=== PATIENT | female | born 1965 | race Caucasian/White ===

== ENCOUNTER 2016-06-08 07:21 | Emergency (ER) | payer BC ==
[2016-06-08 07:43] VITALS: BP 110/70
--- NOTE | 2016-06-08 07:51 | UC ---
Throat Pain/Nasal Alonso HPI - HPI Summary HPI Summary: sinus pressure, and green drainage x 2weeks, awoke with headache this am so came for eval. Also exposed to strep by her grandchildren. Had sinuplasty 2010 -Dr. Hays and has had 4 nasal fractures. Hot and cold chills but no def fever. - History of Current Complaint Chief Complaint: UCRespiratory Stated Complaint: UPPER RESPIRATORY Time Seen by Provider: 06/08/16 07:43 Hx Obtained From: Patient Hx Last Menstrual Period: n/a Onset/Duration: Gradual Onset, Lasting Weeks - 2, Still Present Severity: Moderate Pain Intensity: 8 Pain Scale Used: 0-10 Numeric Cough: Sputum Appears - green Associated Signs & Symptoms: Positive: Wheezing, Sinus Discomfort, Nasal Discharge, Other - chills. Negative: Fever Related History: Prior ENT Surgery - sinuplasty - Epiglottits Risk Factors Epiglottis Risk Factors: Negative - Allergies/Home Medications Allergies/Adverse Reactions: Allergies Allergy/AdvReac Type Severity Reaction Status Date / Time Sulfa Drugs Allergy Severe Rash And Verified 06/08/16 07:33 Itching Tomato Allergy Hives Verified 06/08/16 07:33 Home Medications: Home Medications Fluticasone NASAL SPRAY 50MCG* [Flonase NASAL SPRAY 50MCG*] 2 inh NASAL BID [History Confirmed 06/08/16] Ibuprofen TAB* [Advil TAB*] 400 mg PO Q6H PRN 06/08/16 [History Confirmed ] PMH/Surg Hx/FS Hx/Imm Hx Endocrine History Of: Reports: Thyroid Disease - s/p Thyroidectomy Denies: Diabetes Cardiovascular History Of: Denies: Cardiac Disorders, Hypertension Respiratory History Of: Denies: COPD, Asthma GI/ History Of: Denies: Ulcer Psychological History Of: Reports: Anxiety Cancer History Of: Denies: Breast Cancer - Surgical History Surgical History: Yes Surgery Procedure, Year, and Place: Partial Hysterectomy 2004/thyroidectomy, bladder sling, nose, csection - Family History Known Family History: Positive: Other - Crohn's, thyroid cancer, lung cancer, ovarian cancer - Social History 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 Lives: With Family Alcohol Use: Occasionally Substance Use Type: None Smoking Status (MU): Former Smoker Type: Cigarettes Amount Used/How Often: 1/2 PPD Length of Time of Smoking/Using Tobacco: 19 Years Have You Smoked in the Last Year: No When Did the Patient Quit Smoking/Using Tobacco: 2003 Household Exposure Type: Cigarettes - Immunization History Most Recent Influenza Vaccination: NO Review of Systems Constitutional: Chills ENT: Nasal Discharge, Other - sinus pressure Respiratory: Cough Cardiovascular: Negative Neurological: Headache Psychological: Negative All Other Systems Reviewed And Are Negative: Yes Physical Exam Triage Information Reviewed: Yes Appearance: No Pain Distress, Well-Nourished, Ill-Appearing Vital Signs: Initial Vital Signs Temp 98 F 06/08/16 07:37 Pulse 79 06/08/16 07:37 Resp 18 06/08/16 07:37 BP 110/70 06/08/16 07:37 Pulse Ox 99 06/08/16 07:37 Vital Signs Reviewed: Yes Eyes: Positive: Conjunctiva Clear ENT: Positive: Pharyngeal erythema, TMs normal Neck: Positive: Supple, Nontender, No Lymphadenopathy Respiratory: Positive: Lungs clear, Normal breath sounds, No respiratory distress Cardiovascular: Positive: RRR, No Murmur, Pulses Normal, Brisk Capillary Refill Musculoskeletal: Positive: Strength Intact, ROM Intact Neurological: Positive: Alert, Muscle Tone Normal Psychological Exam: Normal Skin Exam: Normal Throat Pain/Nasal Course/Dx - Course Course Of Treatment: rapid A neg - Differential Dx/Diagnosis Differential Diagnosis/HQI/PQRI: Pharyngitis, Sinusitis, URI Provider Diagnoses: acute sinusitis Discharge - Discharge Plan Condition: Stable Disposition: HOME Prescriptions: Amoxicillin/Clavulanate TAB* [Augmentin TAB 875*] 875 mg PO BID #20 tab Patient Education Materials: Sinusitis (ED) Referrals: Fern Henley MD [Medical Doctor] -
== END 2016-06-08 08:17 | disposition home or self-care (01) ==
LOC: UCCORT 07:21
DX: J01.90 Acute sinusitis, unspecified (principal); Z88.2 Allergy status to sulfonamides; Z87.891 Personal history of nicotine dependence
CPT/HCPCS: 87651; 99211; G0463

== ENCOUNTER 2016-06-28 09:54 | Emergency (ER) | payer BC ==
[2016-06-28 10:54] VITALS: BP 106/62
--- NOTE | 2016-06-28 11:20 | UC ---
Throat Pain/Nasal Alonso HPI - HPI Summary HPI Summary: SINUS PAIN AND PRESSURE X 10 DAYS + NASAL CONGESTION PND, NO FEVER, NO CHILLS - History of Current Complaint Chief Complaint: UCGeneralIllness Stated Complaint: SINUS Time Seen by Provider: 06/28/16 11:07 Hx Obtained From: Patient Hx Last Menstrual Period: n/a Onset/Duration: Gradual Onset, Lasting Days - 10, Still Present Severity: Moderate Cough: Nonproductive Associated Signs & Symptoms: Positive: Sinus Discomfort, Nasal Discharge. Negative: Fever, Rash - Allergies/Home Medications Allergies/Adverse Reactions: Allergies Allergy/AdvReac Type Severity Reaction Status Date / Time Sulfa Drugs Allergy Severe Rash And Verified 06/28/16 10:50 Itching Tomato Allergy Hives Verified 06/28/16 10:50 PMH/Surg Hx/FS Hx/Imm Hx Endocrine History Of: Reports: Thyroid Disease - s/p Thyroidectomy Denies: Diabetes Cardiovascular History Of: Denies: Cardiac Disorders, Hypertension Respiratory History Of: Denies: COPD, Asthma GI/ History Of: Denies: Ulcer Psychological History Of: Reports: Anxiety Cancer History Of: Denies: Breast Cancer - Surgical History Surgical History: Yes Surgery Procedure, Year, and Place: Partial Hysterectomy 2004/thyroidectomy, bladder sling, nose, csection - Family History Known Family History: Positive: Hypertension, Other - Crohn's, thyroid cancer, lung cancer, ovarian cancer - Social History Alcohol Use: Occasionally Substance Use Type: None Smoking Status (MU): Former Smoker Type: Cigarettes Amount Used/How Often: 1/2 PPD Length of Time of Smoking/Using Tobacco: 19 Years Have You Smoked in the Last Year: No When Did the Patient Quit Smoking/Using Tobacco: 2004 Household Exposure Type: Cigarettes - Immunization History Most Recent Influenza Vaccination: Not the Season Review of Systems Constitutional: Negative Skin: Negative Eyes: Negative ENT: Nasal Discharge Respiratory: Cough Cardiovascular: Negative Genitourinary: Dysuria All Other Systems Reviewed And Are Negative: Yes Physical Exam Triage Information Reviewed: Yes Appearance: Well-Appearing, No Pain Distress, Well-Nourished Vital Signs: Initial Vital Signs Temp 99 F 06/28/16 10:46 Pulse 97 06/28/16 10:46 Resp 16 06/28/16 10:46 BP 106/62 06/28/16 10:46 Pulse Ox 100 04/15/17 10:46 Vital Signs Reviewed: Yes Eyes: Positive: Conjunctiva Clear ENT: Positive: Normal ENT inspection, Hearing grossly normal, Pharynx normal, Nasal congestion, Nasal drainage, TMs normal Neck: Positive: Supple, Nontender, No Lymphadenopathy Respiratory: Positive: Chest non-tender, Lungs clear, Normal breath sounds, No respiratory distress Cardiovascular: Positive: RRR, No Murmur, Pulses Normal Abdominal Exam: Normal Abdomen Description: Positive: Nontender, No Organomegaly, Soft, Distended, Guarding. Negative: CVA Tenderness (R), CVA Tenderness (L) Bowel Sounds: Positive: Present Throat Pain/Nasal Course/Dx - Differential Dx/Diagnosis Provider Diagnoses: SINUSITIS Discharge - Discharge Plan Condition: Stable Disposition: HOME Prescriptions: Amoxicillin/Clavulanate TAB* [Augmentin TAB 875*] 875 mg PO BID #20 tab Patient Education Materials: Sinusitis (ED) Referrals: Jennifer Noble PA [Primary Care Provider] - If Needed
== END 2016-06-28 11:29 | disposition home or self-care (01) ==
LOC: UCCORT 09:54
DX: J32.9 Chronic sinusitis, unspecified (principal); F41.8 Other specified anxiety disorders; E89.0 Postprocedural hypothyroidism; Z90.711 Acquired absence of uterus with remaining cervical stump; Z88.2 Allergy status to sulfonamides; Z87.891 Personal history of nicotine dependence
CPT/HCPCS: 81003; 99212; G0463

== ENCOUNTER 2016-08-21 19:09 | Emergency (ER) | payer BC ==
[2016-08-21 20:18] VITALS: BP 104/57
--- NOTE | 2016-08-21 20:29 | UC ---
Throat Pain/Nasal Alosno HPI - HPI Summary HPI Summary: 50 yo F with sinus pressure and teeth aching x 2 weeks. A little dizzy. Hx sinus infections, s/p sinuplasty with Dr. Hays in 2010. - History of Current Complaint Chief Complaint: UCGeneralIllness Stated Complaint: SINUS COMPLAINT Time Seen by Provider: 08/21/16 20:20 Hx Obtained From: Patient Hx Last Menstrual Period: n/a Onset/Duration: Gradual Onset, Lasting Days, Still Present Severity: Moderate Pain Intensity: 7 Pain Scale Used: 0-10 Numeric Cough: None Associated Signs & Symptoms: Positive: Sinus Discomfort, Nasal Discharge Related History: Prior ENT Surgery - Allergies/Home Medications Allergies/Adverse Reactions: Allergies Allergy/AdvReac Type Severity Reaction Status Date / Time Sulfa Drugs Allergy Severe Rash And Verified 08/21/16 20:11 Itching Tomato Allergy Hives Verified 08/21/16 20:11 Home Medications: Home Medications Pseudoephedrine TAB* [Sudafed TAB*] 30 mg PO Q6H PRN 08/21/16 [History Confirmed 08/21/16] PMH/Surg Hx/FS Hx/Imm Hx Previously Healthy: Yes - Surgical History Surgical History: Yes Surgery Procedure, Year, and Place: Partial Hysterectomy 2004/thyroidectomy, bladder sling, rhinoplasty, csection - Family History Known Family History: Positive: Hypertension, Other - Crohn's, thyroid cancer, lung cancer, ovarian cancer - Social History Lives: With Family Alcohol Use: Occasionally Substance Use Type: None Smoking Status (MU): Former Smoker Type: Cigarettes Amount Used/How Often: 1/2 PPD Length of Time of Smoking/Using Tobacco: 19 Years Have You Smoked in the Last Year: No When Did the Patient Quit Smoking/Using Tobacco: 2003 Household Exposure Type: Cigarettes - Immunization History Most Recent Influenza Vaccination: Not the 2016/2016 Season Review of Systems Constitutional: Negative Skin: Negative Eyes: Negative ENT: Nasal Discharge, Other - sinus discomfort, teeth pain Respiratory: Negative Cardiovascular: Negative Gastrointestinal: Negative Genitourinary: Negative Motor: Negative Neurovascular: Negative Musculoskeletal: Negative Neurological: Negative Psychological: Negative All Other Systems Reviewed And Are Negative: Yes Physical Exam Triage Information Reviewed: Yes Appearance: Well-Nourished, Ill-Appearing, Pain Distress Vital Signs: Initial Vital Signs Temp 98.8 F 08/21/16 20:13 Pulse 88 08/21/16 20:13 Resp 16 08/21/16 20:13 BP 104/57 08/21/16 20:13 Pulse Ox 99 08/21/16 20:13 Vital Signs Reviewed: Yes Eyes: Positive: Conjunctiva Clear ENT: Positive: Hearing grossly normal, Pharyngeal erythema, TMs normal, Other: - sinus tenderness left frontal and left maxillary Dental: Negative: Percussion Tenderness @ - of right sided upper teeth, Abscess @, Cellulitis @ Neck: Positive: Supple, Nontender, No Lymphadenopathy Respiratory: Positive: Lungs clear, Normal breath sounds, No respiratory distress, No accessory muscle use Cardiovascular: Positive: RRR, No Murmur, Pulses Normal, Brisk Capillary Refill Musculoskeletal: Positive: Strength Intact, ROM Intact Neurological: Positive: Alert, Muscle Tone Normal Psychological Exam: Normal Skin Exam: Normal Throat Pain/Nasal Course/Dx - Differential Dx/Diagnosis Differential Diagnosis/HQI/PQRI: Laryngitis, Pharyngitis, Sinusitis, URI Provider Diagnoses: sinusitis Discharge - Discharge Plan Condition: Stable Disposition: HOME Prescriptions: Amoxicillin/Clavulanate TAB* [Augmentin TAB 875*] 875 mg PO BID #20 tab Patient Education Materials: Sinusitis (ED) Referrals: Jennifer Noble PA [Primary Care Provider] -
== END 2016-08-21 20:38 | disposition home or self-care (01) ==
LOC: UCCORT 19:09
DX: J32.9 Chronic sinusitis, unspecified (principal); Z87.891 Personal history of nicotine dependence
CPT/HCPCS: 99211; G0463

== ENCOUNTER 2017-01-01 16:44 | Emergency (ER) | payer BC ==
[2017-01-01] MEDS ORDERED: Fluorescein Sodium TOPICAL* 1 MG TEST OPHTHALMIC ONE (18:29)
[2017-01-01] MEDS ORDERED: Tetracaine 0.5% OPTH.SOL 4 ML* 1 DROP BTL LEFT EYE ONE (18:30)
[2017-01-01] MEDS ORDERED: Eye Irrigation Solution 30 ML BOTTLE LEFT EYE ONE (18:31)
[2017-01-01 18:41] VITALS: BP 113/76
--- NOTE | 2017-01-01 19:01 | UC ---
Eye Complaint HPI - HPI Summary HPI Summary: PATIENT OF DR PALOMINO'S SERVICE, SINUS SURGERY AND LEFT EAR TUBE PLACED IN OCTOBER. THREE DAYS OF LEFT SIDED SINUS PRESSURE CONGESTION. LEFT EYE REDNESS AND DISCHARGE SINCE THIS MORNING. NO FEVER. NO CHANGES IN VISION. NO PAIN WITH EYE MOVEMENT. - History of Current Complaint Chief Complaint: UCEye Stated Complaint: FOREIGN BODY EYE Time Seen by Provider: 01/01/17 18:13 Hx Obtained From: Patient, Family/Housekeeping Cleaner Hx Last Menstrual Period: n/a Onset/Duration: Sudden Onset, Lasting Days, Worse Since - TODAY Timing: Constant Severity Initially: Mild Severity Currently: Moderate Location of Injury: Conjunctiva Character: Dull Aggravating Factor(s): Nothing Alleviating Factor(s): Nothing Associated Signs And Symptoms: Positive: Drainage (Clear), Drainage (Purulent). Negative: Photophobia, Vision Impairment Bilateral, Vision Impairment Right, Vision Impairment Left, Fever, Swelling - Risk Factors Penetrating Injury Risk Factor: Negative Globe Rupture Risk Factors: Negative Acute Glaucoma Risk Factors: Eye Inflammation Optic Artery Occlusion Risk Factors: Negative - Allergies/Home Medications Allergies/Adverse Reactions: Allergies Allergy/AdvReac Type Severity Reaction Status Date / Time Sulfa Drugs Allergy Severe Rash And Verified 01/01/17 18:31 Itching Tomato Allergy Hives Verified 01/01/17 18:31 Home Medications: Home Medications Phentermine HCl 37.5 mg PO DAILY 01/01/17 [History Confirmed 01/01/17] PMH/Surg Hx/FS Hx/Imm Hx Previously Healthy: Yes - Surgical History Surgical History: Yes Surgery Procedure, Year, and Place: Partial Hysterectomy 2004/thyroidectomy, bladder sling, rhinoplasty, csection - Family History Known Family History: Positive: Hypertension, Other - Crohn's, thyroid cancer, lung cancer, ovarian cancer - Social History Occupation: Employed Full-time Lives: With Family Alcohol Use: Occasionally Substance Use Type: None Smoking Status (MU): Former Smoker Type: Cigarettes Amount Used/How Often: 1/2 PPD Length of Time of Smoking/Using Tobacco: 19 Years Have You Smoked in the Last Year: No When Did the Patient Quit Smoking/Using Tobacco: 2003 Household Exposure Type: Cigarettes - Immunization History Most Recent Influenza Vaccination: Not the 2016/2016 Season Review of Systems Constitutional: Negative Skin: Negative Eyes: Drainage, Eye Redness - LEFT ENT: Negative Respiratory: Negative Cardiovascular: Negative Gastrointestinal: Negative Genitourinary: Negative Motor: Negative Neurovascular: Negative Musculoskeletal: Negative Neurological: Negative Psychological: Negative Is Patient Immunocompromised?: No All Other Systems Reviewed And Are Negative: Yes Physical Exam Triage Information Reviewed: Yes Appearance: Well-Appearing, No Pain Distress, Well-Nourished Vital Signs: Initial Vital Signs Temp 98 F 01/01/17 18:34 Pulse 85 01/01/17 18:34 Resp 16 01/01/17 18:34 BP 113/76 01/01/17 18:34 Pulse Ox 100 01/01/17 18:34 Vital Signs Reviewed: Yes Eyes: Positive: Conjunctiva Inflamed, Discharge ENT: Positive: Pharynx normal, Nasal congestion, Nasal drainage, TM bulging, TM dull, Other: - FRONTAL AND LEFT MAXILLARY SINUS TENDERNESS TO PALPATION; EAR TUBE IN LEFT OM Dental Exam: Normal Neck exam: Normal Neck: Positive: Supple, Nontender Respiratory Exam: Normal Respiratory: Positive: Chest non-tender, Lungs clear, Normal breath sounds, No respiratory distress, No accessory muscle use Cardiovascular Exam: Normal Cardiovascular: Positive: RRR, No Murmur, Pulses Normal, Brisk Capillary Refill Musculoskeletal Exam: Normal Musculoskeletal: Positive: Strength Intact, ROM Intact Neurological Exam: Normal Psychological Exam: Normal Psychological: Positive: Normal Response To Family Skin Exam: Normal Eye Complaint Course/Dx - Differential Dx/Diagnosis Differential Diagnosis/HQI/PQRI: Conjunctivitis, Corneal Abrasion, Other - SINUSITIS Provider Diagnoses: LEFT CONJUNCTIVITIS; SINUSITIS - Physician Notification/Consults Instructed by Provider To: Have Pt Call For Appt. Discharge - Discharge Plan Condition: Stable Disposition: HOME Prescriptions: Amoxicillin/Clavulanate TAB* [Augmentin TAB 875*] 875 mg PO BID #20 tab Tobramycin 0.3% OPHTH.KAREN* 4 drop LEFT EYE Q4H #1 btl Patient Education Materials: Sinusitis (ED), Conjunctivitis (ED) Referrals: Jennifer Noble PA [Primary Care Provider] - Ga Palomino MD [Medical Doctor] -
== END 2017-01-01 19:11 | disposition home or self-care (01) ==
LOC: UCCORT 16:44
DX: H10.32 Unspecified acute conjunctivitis, left eye (principal); J32.9 Chronic sinusitis, unspecified; X58.XXXA Exposure to other specified factors, initial encounter; Z88.2 Allergy status to sulfonamides; Z87.891 Personal history of nicotine dependence
CPT/HCPCS: 99212; G0463

== ENCOUNTER 2017-06-01 07:28 | Emergency (ER) | payer BC ==
[2017-06-01 07:52] VITALS: BP 118/78
--- NOTE | 2017-06-01 08:01 | ED ---
GI/ HPI - HPI Summary HPI Summary: 51 yr old female with the complaint of Post nasal drip, sore throat, sinus pressure, onset a month ago. She also complains of bladder spasms and some flank pain. Denies fever, chills. Denies NVD. - History of Current Complaint Chief Complaint: UCRespiratory Time Seen by Provider: 06/01/17 07:53 Stated Complaint: URINARY/SINUS Hx Last Menstrual Period: n/a Pain Intensity: 5 - Allergy/Home Medications Allergies/Adverse Reactions: Allergies Allergy/AdvReac Type Severity Reaction Status Date / Time Sulfa (Sulfonamide Allergy Rash And Verified 06/01/17 07:38 Antibiotics) Itching tomato Allergy Hives Verified 06/01/17 07:38 Home Medications: Home Medications Cholecalciferol TAB* [Vitamin D TAB*] 1,000 unit PO DAILY 06/01/17 [History Confirmed 06/01/17] Topiramate TAB(*) [Topamax 25 MG tab] 50 mg PO QAM 06/01/17 [History Confirmed 06/01/17] PMH/Surg Hx/FS Hx/Imm Hx Endocrine/Hematology History: Reports: Hx Thyroid Disease - s/p Thyroidectomy Denies: Hx Diabetes Cardiovascular History: Denies: Hx Hypertension Respiratory History: Denies: Hx Asthma, Hx Chronic Obstructive Pulmonary Disease (COPD) GI History: Denies: Hx Ulcer Psychiatric History: Reports: Hx Anxiety - Cancer History Hx Chemotherapy: No Hx Radiation Therapy: No - Surgical History Surgery Procedure, Year, and Place: Partial Hysterectomy 2004/thyroidectomy, bladder sling, rhinoplasty, csection Infectious Disease History: No Infectious Disease History: Reports: Hx Shingles Denies: Hx Clostridium Difficile, Hx Hepatitis, Hx Human Immunodeficiency Virus (HIV), Hx of Known/Suspected MRSA, Hx Tuberculosis, Hx Known/Suspected VRE , Hx Known/Suspected VRSA, History Other Infectious Disease, Traveled Outside the [place] in Last 30 Days - Family History Known Family History: Positive: Hypertension, Other - Crohn's, thyroid cancer, lung cancer, ovarian cancer - Social History Alcohol Use: Occasionally Substance Use Type: Reports: None Smoking Status (MU): Former Smoker Type: Cigarettes Amount Used/How Often: 1/2 PPD Length of Time of Smoking/Using Tobacco: 19 Years Have You Smoked in the Last Year: No Review of Systems Constitutional: Negative Positive: Sore Throat, Nasal Discharge Positive: Cough All Other Systems Reviewed And Are Negative: Yes Physical Exam Triage Information Reviewed: Yes Vital Signs On Initial Exam: Initial Vitals Temp Pulse Resp BP Pulse Ox 99.5 F 94 18 118/78 100 06/01/17 07:46 06/01/17 07:46 06/01/17 07:46 06/01/17 07:46 06/01/17 07:46 Vital Signs Reviewed: Yes Appearance: Positive: Well-Appearing, No Pain Distress Skin: Positive: Warm, Skin Color Reflects Adequate Perfusion Head/Face: Positive: Normal Head/Face Inspection Eyes: Positive: EOMI ENT: Positive: Pharyngeal erythema, Nasal congestion, Nasal drainage, TMs normal , Sinus tenderness Neck: Positive: Nontender Respiratory/Lung Sounds: Positive: Clear to Auscultation, Breath Sounds Present Cardiovascular: Positive: RRR. Negative: Murmur Abdomen Description: Positive: Nontender Musculoskeletal: Positive: Strength/ROM Intact Neurological: Positive: Sensory/Motor Intact, Alert, Oriented to Person Place, Time, CN Intact II-III Psychiatric: Positive: Normal Diagnostics - Vital Signs Vital Signs Temp Pulse Resp BP Pulse Ox 06/01/17 07:46 99.5 F 94 18 118/78 100 - Laboratory Lab Statement: Any lab studies that have been ordered have been reviewed, and results considered in the medical decision making process. GIGU Course/Dx - Course Course Of Treatment: UTI and sinus infection. - Diagnoses Provider Diagnoses: UTI (urinary tract infection), Sinus infection Discharge - Discharge Plan Condition: Good Disposition: HOME Prescriptions: Amoxicillin/Clavulanate TAB* [Augmentin TAB 875*] 875 mg PO BID #20 tab Patient Education Materials: Urinary Tract Infection in Women (ED), Sinusitis ( ED) Referrals: Jennifer Noble PA [Primary Care Provider] - 4 Days
== END 2017-06-01 08:12 | disposition home or self-care (01) ==
LOC: UCCORT 07:28
DX: N39.0 Urinary tract infection, site not specified (principal); J32.9 Chronic sinusitis, unspecified; Z88.2 Allergy status to sulfonamides; Z87.891 Personal history of nicotine dependence; Z91.018 Allergy to other foods
CPT/HCPCS: 81003; 87086; 99212; G0463

== ENCOUNTER 2017-09-04 18:18 | Emergency (ER) | payer BC ==
[2017-09-04 20:34] VITALS: BP 103/77
--- NOTE | 2017-09-04 20:55 | UC ---
Throat Pain/Nasal Alonso HPI - HPI Summary HPI Summary: day 6 of nasal drainage, scratchy throat, congestion,cough, no fevers - History of Current Complaint Chief Complaint: UCGeneralIllness Stated Complaint: SORE THROAT Time Seen by Provider: 09/04/17 20:45 Hx Obtained From: Patient Hx From Patient Unobtainable Due To: Dementia Hx Last Menstrual Period: n/a ?: No Onset/Duration: Sudden Onset Pain Intensity: 5 Pain Scale Used: 0-10 Numeric Cough: Nonproductive Associated Signs & Symptoms: Positive: Nasal Discharge Related History: Seasonal Allergies - Allergies/Home Medications Allergies/Adverse Reactions: Allergies Allergy/AdvReac Type Severity Reaction Status Date / Time Sulfa (Sulfonamide Allergy Rash And Verified 09/04/17 20:25 Antibiotics) Itching tomato Allergy Hives Verified 09/04/17 20:25 Home Medications: Home Medications Levocetirizine Dihydrochloride [Xyzal] 5 mg PO DAILY PRN 09/04/17 [History Confirmed 09/04/17] Omeprazole 40 mg PO BEDTIME 09/04/17 [History Confirmed 09/04/17] PMH/Surg Hx/FS Hx/Imm Hx Previously Healthy: No Endocrine History: Hypothyroidism GI/ History: Gastroesophageal Reflux Psychological History: Depression - Surgical History Surgical History: Yes Surgery Procedure, Year, and Place: Partial Hysterectomy 2004/thyroidectomy, bladder sling, rhinoplasty, csection - Family History Known Family History: Positive: Hypertension, Other - Crohn's, thyroid cancer, lung cancer, ovarian cancer - Social History Occupation: Employed Full-time Lives: With Family Alcohol Use: Occasionally Substance Use Type: None Smoking Status (MU): Former Smoker Type: Cigarettes Amount Used/How Often: 1/2 PPD Length of Time of Smoking/Using Tobacco: 19 Years Have You Smoked in the Last Year: No When Did the Patient Quit Smoking/Using Tobacco: 2004 Household Exposure Type: Cigarettes - Immunization History Most Recent Influenza Vaccination: Not the 2016/2016 Season Review of Systems Constitutional: Negative Skin: Negative Eyes: Negative ENT: Sore Throat, Nasal Discharge, Sinus Congestion Respiratory: Cough Cardiovascular: Negative Gastrointestinal: Negative Genitourinary: Negative Motor: Negative Neurovascular: Negative Musculoskeletal: Negative Neurological: Negative Psychological: Negative Is Patient Immunocompromised?: No All Other Systems Reviewed And Are Negative: Yes Physical Exam Triage Information Reviewed: Yes Appearance: Well-Appearing, No Pain Distress, Well-Nourished Vital Signs: Initial Vital Signs Temp 99.1 F 09/04/17 20:25 Pulse 87 09/04/17 20:25 Resp 20 09/04/17 20:25 BP 103/77 09/04/17 20:25 Pulse Ox 100 09/04/17 20:25 Vital Signs Reviewed: Yes Eye Exam: Normal Eyes: Positive: Conjunctiva Clear ENT Exam: Normal ENT: Positive: Normal ENT inspection, Hearing grossly normal, Pharynx normal, Nasal congestion, Nasal drainage, TMs normal, Hoarse voice, Uvula midline. Negative: Tonsillar swelling, Tonsillar exudate, Trismus, Muffled voice, Sinus tenderness Dental Exam: Normal Neck exam: Normal Neck: Positive: Supple, Nontender, No Lymphadenopathy Respiratory Exam: Normal Respiratory: Positive: Chest non-tender, Lungs clear, Normal breath sounds, No respiratory distress, No accessory muscle use Cardiovascular Exam: Normal Cardiovascular: Positive: RRR, No Murmur, Pulses Normal, Brisk Capillary Refill Musculoskeletal Exam: Normal Musculoskeletal: Positive: Strength Intact, ROM Intact, No Edema Neurological Exam: Normal Neurological: Positive: Alert, Muscle Tone Normal Psychological Exam: Normal Skin Exam: Normal Diagnostics - Laboratory Diagnostic Studies Completed/Ordered: RST (-) Throat Pain/Nasal Course/Dx - Course Assessment/Plan: increase fluids, add flonase , continue daily medications concider following with an clinical academic allergist - Differential Dx/Diagnosis Provider Diagnoses: allergic Rhinnitis Discharge - Sign-Out/Discharge Documenting (check all that apply): Discharge/Admit/Transfer - Discharge Plan Condition: Stable Disposition: HOME Prescriptions: Fluticasone NASAL SPRAY 50MCG* [Flonase NASAL SPRAY 50MCG*] 2 spray BOTH NARES DAILY #1 btl Patient Education Materials: Allergic Rhinitis (ED) Referrals: Sampson Christie MD [Medical Doctor] - 1 Week - Billing Disposition and Condition Condition: STABLE Disposition: Home
== END 2017-09-04 21:03 | disposition home or self-care (01) ==
LOC: UCCORT 18:18
DX: J30.9 Allergic rhinitis, unspecified (principal); Z88.2 Allergy status to sulfonamides; Z91.018 Allergy to other foods
CPT/HCPCS: 87651; 99212; G0463

== ENCOUNTER 2017-12-11 07:21 | Emergency (ER) | payer BC ==
[2017-12-11 07:50] VITALS: BP 127/72
--- NOTE | 2017-12-11 08:29 | UC ---
Throat Pain/Nasal Alonso HPI - HPI Summary HPI Summary: Patient presents to urgent care with a 8 days progressive left sinus pain and pressure. Patient also with left ear pain. Patient states she's been using Flonase, tried Sudafed but made her jittery, and has been taking allergy medicine with little relief. Patient about reports body aches and decreased appetite. Patient with mild cough with green productive sputum. Patient states she's also blowing Green sputum from her nose. Patient denies fevers or chills. Patient's with similar symptoms. Patient states got a tube in her left ear and has not noticed any drainage. improved discomfort in shower. h. /o sinus infection - feels similar. Patient's medications reviewed this visit - History of Current Complaint Chief Complaint: UCRespiratory Stated Complaint: SINUSES Time Seen by Provider: 12/11/17 08:21 Hx Obtained From: Patient Hx Last Menstrual Period: n/a Pain Intensity: 5 - Allergies/Home Medications Allergies/Adverse Reactions: Allergies Allergy/AdvReac Type Severity Reaction Status Date / Time Sulfa (Sulfonamide Allergy Rash And Verified 12/11/17 07:42 Antibiotics) Itching tomato Allergy Hives Verified 12/11/17 07:42 Home Medications: Home Medications Pravastatin Sodium [Pravachol] 80 mg PO DAILY 12/11/17 [History Confirmed ] PMH/Surg Hx/FS Hx/Imm Hx Previously Healthy: Yes - Surgical History Surgical History: Yes Surgery Procedure, Year, and Place: Partial Hysterectomy 2005/thyroidectomy, bladder sling, rhinoplasty, csection - Family History Known Family History: Positive: Hypertension, Other - Crohn's, thyroid cancer, lung cancer, ovarian cancer - Social History Occupation: Employed Full-time Alcohol Use: Occasionally Substance Use Type: None Smoking Status (MU): Former Smoker Type: Cigarettes Amount Used/How Often: 1/2 PPD Length of Time of Smoking/Using Tobacco: 19 Years Have You Smoked in the Last Year: No When Did the Patient Quit Smoking/Using Tobacco: 2003 Household Exposure Type: Cigarettes - Immunization History Most Recent Influenza Vaccination: Not the 2016/2016 Season Review of Systems Constitutional: Fatigue ENT: Sinus Congestion, Sinus Pain/Tenderness Respiratory: Cough All Other Systems Reviewed And Are Negative: Yes Physical Exam - Summary Physical Exam Summary: Vital Signs Reviewed: Yes A+Ox3, no distress Eyes: Conjunctiva Clear, JAZMIN. EOM intact and full ENT: Hearing grossly normal tympnostomy tube left TM, mild erythema, no drainage. turbiantes inflammed and boggy, + TTP sinusus max L>R, mmoist, uvula midline, no exudate, no erythema Neck: Positive: Supple Respiratory: Positive: No respiratory distress, No accessory muscle use + CTA throughout no w/r Cardiovascular: RRR nl s1, s2 no m/r CBT <2 sec abd soft + BS nt/nd no guarding, no distension Musculoskeletal Exam: LOBATO x 4 without difficulty Strength Intact, ROM Intact Neurological: Positive: Alert, + sensation throughout Psychological: Positive: Normal Response To Family Skin: Positive: no rash, no ecchymosis Triage Information Reviewed: Yes Vital Signs: Initial Vital Signs Temp 97.7 F 12/11/17 07:45 Pulse 83 12/11/17 07:45 Resp 16 12/11/17 07:45 BP 127/72 12/11/17 07:45 Pulse Ox 100 12/11/17 07:45 Throat Pain/Nasal Course/Dx - Course Course Of Treatment: Pt with 2 weeks progessive nasal congestion, pnd. Pt now with sinus pressure. vss. exam c/w sinusitis. abx. hydrate. motrin/apap. flonase continue. return rpecaution. secretion precuation - Differential Dx/Diagnosis Provider Diagnoses: sinusitis Discharge - Sign-Out/Discharge Documenting (check all that apply): Patient Departure All imaging exams completed and their final reports reviewed: No Studies - Discharge Plan Condition: Stable Disposition: HOME Prescriptions: Amoxicillin PO (*) [Amoxicillin 500 MG CAP*] 500 mg PO Q12H #20 cap Patient Education Materials: Rhinosinusitis (ED) Referrals: Jennifer Noble PA [Primary Care Provider] - Additional Instructions: - Stay well hydrated. Drink plenty of non-alcoholic, non-caffinated beverages. - Alternate ibuprofen (Advil, Motrin) 600mg and Tylenol every 3 hours for pain or fever. Take with food. Do NOT take for more than 4-5 days. - These infections are spread by secretions - do NOT share eating or drinking utensils - clean items you share with other people such as cell phones, computer mouse, TV remote, computer tablets,etc. Once you have been antibiotics for 2 days, change your toothbrush and your pillowcase. - get plenty of restful sleep - humidify the air in the room where you sleep - boil water, run a hot steam shower, vaporizer, cups of water by heat register - okay to take over the counter decongestant and cough medication (Mucinex) - continue to use Flonase as current - contact your doctor or return with questions or concerns - Billing Disposition and Condition Condition: STABLE Disposition: Home
== END 2017-12-11 08:36 | disposition home or self-care (01) ==
LOC: UCCORT 07:21
DX: J32.9 Chronic sinusitis, unspecified (principal); Z88.2 Allergy status to sulfonamides; Z87.891 Personal history of nicotine dependence
CPT/HCPCS: 99212; G0463

== ENCOUNTER 2018-06-24 07:32 | Emergency (ER) | payer BC ==
[2018-06-24 08:02] VITALS: BP 114/70
[2018-06-24] MEDS ORDERED: Fluorescein Sodium TOPICAL* 1 MG TEST STRIP OPHTHALMIC ONE (08:06)
[2018-06-24] MEDS ORDERED: Tetracaine 0.5% OPTH.SOL 4 ML* 1 DROP BTL ONE (08:06)
--- NOTE | 2018-06-24 08:13 | UC ---
Throat Pain/Nasal Alonso HPI - HPI Summary HPI Summary: Pt presents with week of progressive congestion, ear pain, sinus pressure. mild frontal simeon. no fever, chills Pt denies cough. mild sore throat no sob 2 pt with progressive erythema and discomfort left eye. Pt states was unsure if had left contact in eye - states irrigated and rubbed - later found contact lens on floor - unsure if same one. no vision changes. state eye feels gritty. unsure if foreign body. Pt states had mild yellow crusting this morning Tdap UTD - History of Current Complaint Chief Complaint: UCGeneralIllness Stated Complaint: BILAT EYE,EAR CONCERN Time Seen by Provider: 06/24/18 08:05 Hx Obtained From: Patient Hx Last Menstrual Period: N/A Pain Intensity: 5 - Allergies/Home Medications Allergies/Adverse Reactions: Allergies Allergy/AdvReac Type Severity Reaction Status Date / Time Sulfa (Sulfonamide Allergy Rash And Verified 06/24/18 07:58 Antibiotics) Itching tomato Allergy Hives Verified 06/24/18 07:58 PMH/Surg Hx/FS Hx/Imm Hx Previously Healthy: Yes - Surgical History Surgical History: Yes Surgery Procedure, Year, and Place: Partial Hysterectomy 2004/thyroidectomy, bladder sling, rhinoplasty, csection - Family History Known Family History: Positive: Hypertension, Other - Crohn's, thyroid cancer, lung cancer, ovarian cancer, Non-Contributory - Social History Occupation: Employed Full-time Lives: With Family Alcohol Use: Occasionally Substance Use Type: None Smoking Status (MU): Former Smoker Type: Cigarettes Amount Used/How Often: 1/2 PPD Length of Time of Smoking/Using Tobacco: 19 Years Have You Smoked in the Last Year: No When Did the Patient Quit Smoking/Using Tobacco: 2004 Household Exposure Type: Cigarettes - Immunization History Most Recent Influenza Vaccination: Not the 2016/2017 Season Review of Systems All Other Systems Reviewed And Are Negative: Yes Skin: Positive: Negative Eyes: Positive: Negative ENT: Positive: Ear Ache, Sinus Congestion Respiratory: Positive: Negative Cardiovascular: Positive: Negative Physical Exam - Summary Physical Exam Summary: Vital Signs Reviewed: Yes A+Ox3, congested Eyes: Left eye: + erythema, dry yellow crust medial canthus, JAZMIN. EOM intact and fulls, no photophobia, crisp margin + fluorescence uptake - see procedure note - no foreign body ENT: Hearing grossly normal left ear + erythema, fluid, buldge, right scant fluid, turbinate inflammed and boggy, + PND, mmoist, uvula midline, no exudate , no erythema Neck: Positive: Supple Respiratory: Positive: No respiratory distress, No accessory muscle use + CTA throughout no w/r Cardiovascular: RRR nl s1, s2 no m/r CBT <2 sec abd soft + BS nt/nd no guarding, no distension Musculoskeletal Exam: LOBATO x 4 without difficulty Strength Intact, ROM Intact Neurological: Positive: Alert, + sensation throughout Psychological: Positive: Normal Response To Family Skin: Positive: no rash, no ecchymosis Triage Information Reviewed: Yes Vital Signs: Initial Vital Signs Temp 98.3 F 06/24/18 07:53 Pulse 72 06/24/18 07:53 Resp 16 06/24/18 07:53 BP 114/70 06/24/18 07:53 Pulse Ox 100 06/24/18 07:53 Procedures - Eye Procedure Left Alcaine Drops Administered: Yes - no foreign body -lids everted, no foreign body fluorescene applied Eye FB Removal: other - pt with small abraison left lateral margin iris Throat Pain/Nasal Course/Dx - Course Course Of Treatment: Pt presents with progressive head congestion and ear pain x 1 week Pt also with left eye erythema and drainge - possible had retained contact lesnes VSS exam c/w ear infection left, sinus congesiton Pt with eye injection and well discharge eye with smll corneal abraison - no foreign body - lids everted with fluorescene abx decongestant eye drips with cipro hydrate secretion precaution return precautions - Differential Dx/Diagnosis Provider Diagnosis: Conjunctivitis, Corneal abrasion, Otitis media, Upper respiratory infection Discharge - Sign-Out/Discharge Documenting (check all that apply): Patient Departure All imaging exams completed and their final reports reviewed: No Studies - Discharge Plan Condition: Stable Disposition: HOME Prescriptions: Cefdinir [Cefdinir 300 MG CAP] 300 mg PO BID #20 cap Ciprofloxacin 0.3% OPTH.KAREN* [Cipro 0.3% Opth*] 2 drop LEFT EYE TID #1 btl Fluticasone NASAL SPRAY 50MCG* [Flonase NASAL SPRAY 50MCG*] 2 spray BOTH NARES DAILY #1 btl Patient Education Materials: Ear Infection (ED), Conjunctivitis (ED) Forms: *Work Release Referrals: Jennifer Noble PA [Primary Care Provider] - Additional Instructions: - Stay well hydrated. Drink plenty of non-alcoholic, non-caffinated beverages. - Alternate ibuprofen (Advil, Motrin) 600mg and Tylenol every 3 hours for pain or fever. Take with food. Do NOT take for more than 4-5 days. - Take antibiotics as prescribed for ear infection - it is recommended you follow-up with Dr. Hays - get plenty of restful sleep - For your eye - apply eye drops as prescribed for 5 days - these infections are very contagious - thorough hand washing before and after apply eye drops is important. - Okay to use a wet, warm washcloth to help moisten dry crusty secretions - do not put contact in your left eye for a minimum of 5 days - humidify the air in the room where you sleep - boil water, run a hot steam shower, vaporizer, cups of water by heat register - Take your nasal spray as prescribed - contact your doctor or return with questions or concerns - Billing Disposition and Condition Condition: STABLE Disposition: Home
== END 2018-06-24 08:43 | disposition home or self-care (01) ==
LOC: UCCORT 07:32
DX: H10.32 Unspecified acute conjunctivitis, left eye (principal); S05.02XA Injury of conjunctiva and corneal abrasion without foreign body, left eye, initial encounter; X58.XXXA Exposure to other specified factors, initial encounter; Y92.9 Unspecified place or not applicable; H66.92 Otitis media, unspecified, left ear; J06.9 Acute upper respiratory infection, unspecified; Z88.2 Allergy status to sulfonamides; Z91.018 Allergy to other foods; Z87.891 Personal history of nicotine dependence
CPT/HCPCS: 99212; A9270-GY; G0463

== ENCOUNTER 2018-10-20 09:28 | Emergency (ER) | payer BC ==
[2018-10-20 09:57] VITALS: BP 108/56
--- NOTE | 2018-10-20 10:36 | UC ---
Knee Pain HPI - HPI Summary HPI Summary: Pt presents with c/o posterior right knee pain with no known injury and low back pain that began after painting her deck over the last 4 days. Pt states she saw her PCP for the right knee pain and began to take OTC magnesium supplements with no improvement of "aching pain" in posterior right knee that is worse at night. Pt staes she has a"bad back" and has tried ibuprofen, ice, and heat with no improvement in pain. - History of Current Complaint Chief Complaint: UCLowerExtremity Stated Complaint: RIGHT LEG PAIN/LOWER BACK PAIN Time Seen by Provider: 10/20/18 10:03 Hx Obtained From: Patient Hx Last Menstrual Period: N/A ?: No Onset/Duration: Gradual Onset, Lasting Weeks, Still Present Severity Initially: Moderate Severity Currently: Moderate Pain Intensity: 5 Character: Dull, Aching, Throbbing Aggravating Factor(s): Weight Bearing, Prolonged Standing Alleviating Factor(s): Nothing Associated Signs And Symptoms: Positive: Negative Able to Bear Weight: Yes - Risk Factors Septic Arthritis Risk Factor: Negative Gout Risk Factor: Age ^ 40 - Allergies/Home Medications Allergies/Adverse Reactions: Allergies Allergy/AdvReac Type Severity Reaction Status Date / Time Sulfa (Sulfonamide Allergy Rash And Verified 10/20/18 09:53 Antibiotics) Itching tomato Allergy Hives Verified 10/20/18 09:53 Home Medications: Home Medications Magnesium Oxide [Magnesium] 400 mg PO BID 10/20/18 [History Confirmed 10/20/18] [place]-3S/Dha/Epa/Fish Oil [Fish Oil 1,200 mg Softgel] 1 each PO DAILY 10/20/18 [ History Confirmed 10/20/18] PMH/Surg Hx/FS Hx/Imm Hx Previously Healthy: Yes Endocrine History: Thyroid Disease, Dyslipidemia GI/ History: Gastroesophageal Reflux - Surgical History Surgical History: Yes Surgery Procedure, Year, and Place: Partial Hysterectomy 2005/thyroidectomy, bladder sling, rhinoplasty, csection, ear tubes - Family History Known Family History: Positive: Hypertension, Other - Crohn's, thyroid cancer, lung cancer, ovarian cancer, Non-Contributory - Social History Occupation: Works From/At Home Lives: With Family Alcohol Use: Occasionally Substance Use Type: None Smoking Status (MU): Former Smoker Type: Cigarettes Amount Used/How Often: 1/2 PPD Length of Time of Smoking/Using Tobacco: 19 Years Have You Smoked in the Last Year: No When Did the Patient Quit Smoking/Using Tobacco: 2004 Household Exposure Type: Cigarettes - Immunization History Most Recent Influenza Vaccination: Not the Season Vaccination Up to Date: No Review of Systems All Other Systems Reviewed And Are Negative: Yes Constitutional: Positive: Negative Skin: Positive: Negative Eyes: Positive: Negative ENT: Positive: Negative Respiratory: Positive: Negative Cardiovascular: Positive: Negative Gastrointestinal: Positive: Negative Genitourinary: Positive: Negative Motor: Positive: Negative Neurovascular: Positive: Negative Musculoskeletal: Positive: Arthralgia - right knee, Myalgia - right knee Neurological: Positive: Negative Psychological: Positive: Negative Is Patient Immunocompromised?: No Physical Exam Triage Information Reviewed: Yes Appearance: Well-Appearing - c/o posterior right knee pain and low back pain and stiffness Vital Signs: Initial Vital Signs Temp 99.2 F 10/20/18 09:49 Pulse 66 10/20/18 09:49 Resp 15 10/20/18 09:49 BP 108/56 10/20/18 09:49 Pulse Ox 99 10/20/18 09:49 Vital Signs Reviewed: Yes Eye Exam: Normal ENT Exam: Normal ENT: Positive: Hearing grossly normal Dental Exam: Normal Neck exam: Normal Respiratory: Positive: No respiratory distress Musculoskeletal Exam: Normal Musculoskeletal: Positive: Strength Intact, ROM Intact, No Edema Neurological Exam: Normal Psychological Exam: Normal Skin Exam: Normal Diagnostics - Radiology No standard instances Radiology Interpretation Completed By: Radiologist - FINDINGS: The soft tissues are unremarkable. The bone mineralization is within normal limits. No fracture is identified. There is an incidental flabella. Anatomic alignment is maintained. The joint spaces are preserved. IMPRESSION: NO EVIDENCE FOR FRACTURE. Knee Pain Course/Dx - Differential Dx/Diagnosis Differential Diagnosis/HQI/PQRI: Bursitis, Sprain, Strain Provider Diagnosis: Knee pain, right Discharge - Sign-Out/Discharge Documenting (check all that apply): Patient Departure All imaging exams completed and their final reports reviewed: Yes - Discharge Plan Condition: Stable Disposition: HOME Prescriptions: Cyclobenzaprine TAB* [Flexeril 10 MG TAB*] 10 mg PO Q8H PRN #21 tab PRN Reason: Pain - Mild Patient Education Materials: Low Back Strain (ED), Knee Pain (ED), Lower Back Exercises (ED) Referrals: Jennifer Noble PA [Primary Care Provider] - If Needed Delores Myers MD [Medical Doctor] - If Needed Prateek Clay MD [Medical Doctor] - If Needed - Billing Disposition and Condition Condition: STABLE Disposition: Home
== END 2018-10-20 11:10 | disposition home or self-care (01) ==
LOC: UCCORT 09:28
DX: M25.561 Pain in right knee (principal); E78.5 Hyperlipidemia, unspecified; K21.9 Gastro-esophageal reflux disease without esophagitis; E89.0 Postprocedural hypothyroidism; Z87.891 Personal history of nicotine dependence; Z88.2 Allergy status to sulfonamides
CPT/HCPCS: 99212; G0463

== ENCOUNTER 2019-03-03 17:04 | Emergency (ER) | payer BC ==
--- OUTSIDE RECORDS SUMMARY | 2019-03-03 17:25 | XMS REPORT | Continuity of Care Document ---
:1965 External Reference #:[id number] Author Name Delores Myers MD (transmitted by agent of provider Brad German) Address [address] [place] [address] [place] [address] Problems Active Problems Provider Date Pain in the coccyx Delores Myers MD Onset: 12/30/2018 Body mass index 25-29 - overweight Delores Myers MD Onset: 10/21/2018 Low back pain Delores Myers MD Onset: 10/21/2018 Lumbar radiculopathy Delores Myers MD Onset: 10/21/2018 Social History Type Date Description Comments Sex Unknown Tobacco Use Start: Unknown End: Unknown Patient is a former smoker Smoking Status Reviewed: 10/21/18 Patient is a former smoker Allergies, Adverse Reactions, Alerts Description No Known Drug Allergies Medications Active Medications SIG Qnty Indications Ordering Date Provider Gabapentin take 1 cap by 60caps M54.16 Delores Myers, 01/20/2019 300mg Capsules mouth twice MD daily Gabapentin take 1 cap by 90caps M54.16 Delores Myers, 10/21/2018 100mg Capsules mouth before bed MD time. increase to 2 cap next week and to 3 cap in the 3rd week. Methylprednisolone directions as 21units M54.16 Delores Myers, 10/21/2018 4mg TBPK per dose igovani Levothyroxine Sodium 1 by mouth 6 Unknown 125mcg days a week Tablets Bupropion Hydrochloride 1 by mouth twice Unknown ER (SR) a day 150mg Tablets ER 12HR Calcium 600+D 1 by mouth twice Unknown [id number] a day Tablets Omeprazole 1 by mouth every Unknown 40mg Capsules DR day Fish Oil one tab po daily Unknown 600mg Capsules Atorvastatin Calcium 1 by mouth every Unknown 80mg day Tablets Prozac take one Unknown 10mg Capsules capsule/tablet daily by mouth Immunizations Description No Information Available Vital Signs Date Vital Result Comment 10/21/2018 2:29pm Height 67.5 inches 5'7.50" Weight 165.00 lb BP Systolic 118 mmHg BP Diastolic 64 mmHg BMI (Body Mass Index) 25.5 kg/m2 Results Description No Information Available Procedures Date Code Description Status 12/16/2018 77222 Inj/Aspir Major JT Or Bursa W/ US Completed Medical Devices Description No Information Available Encounters Type Date Location Provider Dx Diagnosis Office Visit 12/30/2018 [facility] MD M54.5 Low back pain 3:50p Referral Nurse AT [place] M54.16 Radiculopathy, lumbar region M53.3 Sacrococcygeal disorders, not elsewhere classified Z68.25 Body mass index (BMI) 25.0-25.9, adult Office Visit 10/21/2018 2:10p Sports Delorse Myers M54.16 Radiculopathy, Medicine Of lumbar region [facility] AT [place] M54.5 Low back pain Z68.25 Body mass index (BMI) 25.0-25.9, adult Assessments Date Code Description Provider 01/20/2019 M54.[place] Low back pain Delores Myers MD 01/20/2019 M54.16 Radiculopathy, lumbar region Delores Myers MD 01/20/2019 Z68.25 Body mass index (BMI) 25.0-25.9, adult Delores Myers MD 12/30/2018 M54.5 Low back pain Delores Myers MD 12/30/2018 M54.16 Radiculopathy, lumbar region Delores Myers MD 12/30/2018 M53.3 Sacrococcygeal disorders, not elsewhere classified Delores Myers MD 12/30/2018 Z68.25 Body mass index (BMI) 25.0-25.9, adult Delores Myers MD 12/16/2018 M54.5 Low back pain Delores Myers MD 12/16/2018 M54.16 Radiculopathy, lumbar region Delores Myers MD 12/16/2018 Z68.25 Body mass index (BMI) 25.0-25.9, adult Delores Myers MD 10/21/2018 M54.16 Radiculopathy, lumbar region Delores Myers MD 10/21/2018 M54.5 Low back pain Delores Myers MD 10/21/2018 Z68.25 Body mass index (BMI) 25.0-25.9, adult Delores Myers MD Plan of Treatment Future Appointment(s):03/03/2019 4:10 pm - Delores Myers MD at [facility]01/20/2019 - Delores Myers MDM54.5 Low back painM54.16 Radiculopathy, lumbar regionNew Medication:Gabapentin 300 mg - take 1 cap by mouth twice dailyComments:Low back pain that radiates down all the way to her foot on the right side. There is significant numbness and tingling associated. She reports that when she is sitting on a bike her foot will go completely numb. Similar symptoms occur during sex. She does have some incontinence as well but denies any saddle anesthesia. Symptoms progressively got worse. She has done physical therapy in the past but not recently. Not taking any medications for pain at this time, took Flexeril last night.She was seen at the urgent care yesterday for cramping and had right knee x-rays which were negative for any fracture.She denies any groin pain.X-rays of the lumbar spine: Moderate the degenerative disc diseaseat L4-L5(final read)X-rays of the right hip: Possible mild retroversion, minimal osteoarthritis if any(final read: Negative study). Symptoms appear to be consistent with lumbar radiculopathy involving L4-L5 L5-S1. Her hip has some stiffness on exam that can be attributed to very early minimal osteoarthritis. Her knee exam was completely benign today and there is no tenderness on exam to where shepoints pain in the distal hamstrings. She does have incontinence but that has been going on for a long time and she had had surgery for that including sling surgery.In interim, her pain is more localized on the right posterolateral hip. She has been doing physical therapy and feels the symptoms are slightly better .The cramping/ numbness and tingling is much better but she is taking Neurontin 300 mgevery other day.Had right hip corticosteroid injection under ultrasound guidance and reports her hipis feeling much better. she has not had time to get to therapy. she is still having some pain in her low spine/tailbone. She reports that she still has some pain with the restroom. She reports that she has some popping in that area when she bends over. She reports that she has had a previous injury where she did not have any imaging. She was 14. She reports pain with sitting. She reports that her numbness is much better and she is doing her home exercises. Did start Neurontin and feels Neurontin is helpful Her hip exam is much better but she has tenderness at the coccyx area and the L5-S1 and below it.Today she returns for a follow-up visit and reports that hip is feeling much better. She reports that she is sleeping better and is having an easier time in the restroom. She reports that she has been walking for 2 miles a day. She reports that the popping has gone away as well. She is doing PT( done 4 to 5 weeks) and that is helping ,Taking Neurontin daily 300 mg and that is helping , alreadystopped using the donut pad. Still having numbness and tingling but reduced, notices it only in foot now. X-rays of the sacrum and coccyx: 01/07/19 :#. Partial obscuration of the inferior sacrum and coccyx in the AP projection due to bowel contents. #. No fracture or focal osseous lesion of the sacrum or coccyx evident. #. Unremarkable presacral fat space. #. Unremarkable sacroiliac joints. Minimal degenerative arthropathy at the pubic symphysis. #. Lumbar sacral spine degenerative spondylosis and facet joint osteoarthritis. Disc space narrowing at L4-L5 and severe without significant change.We discussed about getting MRI of lumbar spine and since her symptoms are getting better , we decided to hold off mri at this time. Can consider later if symptoms plateau or get worse- plan will be for trying to get epidural injection .Plan:- Donut pad only if needed- continue Neurontin, increase to 300mg twice daily . new script e prescribed. -Continue physical therapy Follow-up in 6 weeks. If no improvement obtain MRI of lumbar spine. All the questions were answered appropriately, she expressed [id number] Body mass index (BMI) 25.0-25.9 , adultComments:Weight loss is important, diet plus exercise is better than either alone. Functional Status Description No Information Available Mental Status Description No Information Available Referrals Description No Information Available
--- OUTSIDE RECORDS SUMMARY | 2019-03-03 17:25 | XMS REPORT | Continuity of Care Document ---
:1965 External Reference #:[id number] Author Name Delores Myers MD Address [address] [place] [id number] Problems Active Problems Provider Date Lumbar radiculopathy Delores Myers MD Onset: 10/21/2018 Low back pain Delores Myers MD Onset: 10/21/2018 Body mass index 25-29 - overweight Delores Myers MD Onset: 10/21/2018 Pain in the coccyx Delores Myers MD Onset: 12/30/2018 Social History Type Date Description Comments Sex Unknown Tobacco Use Start: Unknown End: Unknown Patient is a former smoker Smoking Status Reviewed: 02/24/19 Patient is a former smoker Allergies, Adverse Reactions, Alerts Active Allergies Reaction Severity Comments Date Bactrim Hives 02/24/2019 Inactive Allergies NKDA 10/21/2018 Medications Active Medications SIG Qnty Indications Ordering Date Provider Gabapentin take 1 cap by 60caps M54.16 Delores Myers, 01/20/2019 300mg Capsules mouth twice MD daily Methylprednisolone directions as 21units M54.16 [facility] Lucia, 10/21/2018 4mg TBPK per dose giovani Levothyroxine Sodium 1 by mouth 6 Unknown 112mcg days a week Tablets Bupropion Hydrochloride 300 mg once Unknown ER (SR) daily by mouth 150mg Tablets ER 12HR Calcium 600+D 1 by mouth twice Unknown [id number] a day Tablets Omeprazole 1 by mouth every Unknown 40mg Capsules DR day Fish Oil one tab po daily Unknown 600mg Capsules Atorvastatin Calcium 1 by mouth every Unknown 80mg day Tablets Prozac take one Unknown 10mg Capsules capsule/tablet daily by mouth History Medications Gabapentin take 1 cap by 90caps M54.16 Delores Myers MD 10/21/2018 - 100mg mouth before bed 02/24/2019 Capsules time. increase to 2 cap next week and to 3 cap in the 3rd week. Medications Administered in Office Medication SIG Qnty Indications Ordering Provider Date Triamcinolone (Kenalog) Delores Myers MD 12/16/2018 Injection Immunizations Description No Information Available Vital Signs Date Vital Result Comment 02/24/2019 5:31pm Heart Rate 79 /min BP Systolic 118 mmHg BP Diastolic 78 mmHg Respiratory Rate 15 /min Body Temperature 98.6 F Pain Level 2 O2 % BldC Oximetry 95 % 10/21/2018 2:29pm Height 67.5 inches 5'7.50" Weight 165.00 lb BP Systolic 118 mmHg BP Diastolic 64 mmHg BMI (Body Mass Index) 25.5 kg/m2 Results Description No Information Available Procedures Date Code Description Status 12/16/201874375 Inj/Aspir Major JT Or Bursa W/ US Completed Medical Devices Description No Information Available Encounters Type Date Location Provider Dx Diagnosis Office Visit 01/20/2019 [facility] Myers MD M54.5 Low back pain 4:10p [facility] [place] M54.16 Radiculopathy, lumbar region Z68.25 Body mass index (BMI) 25.0-25.9, adult Office Visit 12/30/2018 3:50p [facility] Delores Myers MD M54.5 Low back pain [facility] [place] M54.16 Radiculopathy, lumbar region M53.3 Sacrococcygeal disorders, not elsewhere classified Z68.25 Body mass index (BMI) 25.0-25.9, adult Office Visit 10/21/2018 2:10p Sports Delores Myers M54.16 Radiculopathy, Medicine Of lumbar region [facility] [place] M54.5 Low back pain Z68.25 Body mass index (BMI) 25.0-25.9, adult Assessments Date Code Description Provider 03/03/2019 M54.5 Low back pain Delores Myers MD 03/03/2019 M54.16 Radiculopathy, lumbar region Delores Myers MD 03/03/2019 Z68.25 Body mass index (BMI) 25.0-25.9, adult Delores Myers MD 02/24/2019 N39.0 Urinary tract infection, site not specified Ameena Taylor, [employer] 01/20/2019 M54.5 Low back pain Delores Myers MD 01/20/2019 M54.16 Radiculopathy, lumbar region Delores Myers MD 01/20/2019 Z68.25 Body mass index (BMI) 25.0-25.9, adult Delores Myers MD 12/30/2018 M54.5 Low back pain Delores Myers MD 12/30/2018 M54.16 Radiculopathy, lumbar region Delores Myers MD 12/30/2018 M53.3 Sacrococcygeal disorders, not elsewhere Delores Myers MD classified 12/30/2018 Z68.25 Body mass index (BMI) 25.0-25.9, adult Delores Myers MD 12/16/2018 M54.5 Low back pain Delores Myers MD 12/16/2018 M54.16 Radiculopathy, lumbar region Delores Myers MD 12/16/2018 M25.551 Pain in right hip Delores Myers MD 12/16/2018 Z68.25 Body mass index (BMI) 25.0-25.9, adult Delores Myers MD 10/21/2018 M54.16 Radiculopathy, lumbar region Delores Myers MD 10/21/2018 M54.5 Low back pain Delores Myesr MD 10/21/2018 Z68.25 Body mass index (BMI) 25.0-25.9, adult Delores Myers MD Plan of Treatment Future Appointment(s):05/12/2019 1:30 pm - Delores Myers MD at [facility]03/03/2019 - Delores Myers MDM54.5 Low back painNew Therapy: Physical RzupbjjE82.16 Radiculopathy, lumbar regionNew Therapy:Physical TherapyComments:Low back pain that radiates down all the [...] be consistent with lumbar radiculopathy involving L4-L5 L5- S1. Her hip has some stiffness on exam [...] feels the symptoms are slightly better .The cramping/numbness and tingling is much better but she [...] coccyx area and the L5-S1 and below it. hip is feeling much better. She reports [...] Neurontin daily 300 mg and that is helping, already stopped using the donut pad. Still having numbness andtingling but reduced, notices it only in foot now. X-rays of the sacrum and coccyx: 01/07/19:#. Partial obscuration of the inferior sacrum and [...] consider later if symptoms plateau or get worse - plan will be for trying to get epidural injection .Today she returns for a follow-up visit and reports that her hip was feeling better and her symptoms were very well controlleduntil 02/24 where she had symptoms of UTI. Was treated with Macrobid and she completed the full 5 days and was improved but now her symptoms have returned - frequency or urgency dysuria. She sinceshe took today so they did not do any [facility] assess [facility]. She is taking Neurontinonce A day 300 mg with good control of her numbness and tingling. Overall she feels symptoms are well controlled. Her physical exam also unchanged from last time. She does not have any CVA tendernessPlan:- Please go to the convenient care and get a urine checked for UTI- continue Neurontin, at 300mg twice daily . -Continue physical therapy and home exercise Follow-up in 8 weeks. If no improvement or symptoms getting worse, obtain MRI of lumbar spine. All the questions were answered appropriately, she expressed yoimfmfxqosddI89.25 Body mass index (BMI) 25.0-25.9 , adultComments:Weight loss is important, diet plus exercise is better than either alone. Functional Status Description No Information Available Mental Status Description No Information Available Referrals Description No Information Available
--- OUTSIDE RECORDS SUMMARY | 2019-03-03 17:25 | XMS REPORT | Continuity of Care Document ---
:1965 External Reference #:[id number] Author Name Ameena Huttonmanjeet [facility] Address [address] [place] [address] Problems Active Problems Provider Date Lumbar radiculopathy [...] MD daily Methylprednisolone directions as 21units M54.16 [facility] Lucia, 10/21/2018 4mg TBPK per dose giovani Levothyroxine Sodium 1 by mouth 6 Unknown 112mcg days a week Tablets Bupropion Hydrochloride 300 mg once Unknown ER (SR) daily by mouth 150mg Tablets ER 12HR Calcium 600+D 1 by mouth twice Unknown [id number] a day Tablets Omeprazole 1 by mouth [...] Information Available Procedures Date Code Description Status 12/16/201884407 Inj/Aspir Major JT Or Bursa W/ US Completed Medical Devices Description No Information Available Encounters Type Date Location Provider Dx Diagnosis Office Visit 01/20/2019 [facility] Del[facility] Myers MD M54.5 Low back pain 4:10p [employer] [facility] [place] M54.16 Radiculopathy, lumbar region Z68.25 Body mass index (BMI) 25.0-25.9, adult Office Visit 12/30/2018 3:50p [facility] Del[facility] Myers MD M54.5 Low back pain [employer] [facility] [place] M54.16 Radiculopathy, lumbar region M53.3 Sacrococcygeal disorders, not elsewhere classified Z68.25 Body mass index (BMI) 25.0-25.9, adult Office Visit 10/21/2018 2:10p Sports Delores Myers M54.16 Radiculopathy, Medicine Of lumbar region [facility] [place] M54.5 Low back pain Z68.25 Body mass index (BMI) 25.0-25.9, adult Assessments Date Code Description Provider 02/24/2019 N39.0 Urinary tract infection, site not specified Ameena Taylor, MENDOZA 01/20/2019 M54.5 Low back pain Delores Myers [...] MD 12/16/2018 M54.16 Radiculopathy, lumbar region Delores Meyrs MD 12/16/2018 M25.551 Pain in right hip Delores Myers MD 12/16/2018 Z68.25 Body mass index (BMI) 25.0-25.9, adult Delores Myers MD 10/21/2018 M54.16 Radiculopathy, lumbar region Delores Myers MD 10/21/2018 M54.5 Low back pain Delores Myers MD 10/21/2018 Z68.25 Body mass index (BMI) 25.0-25.9, adult Delores Myers MD Plan of Treatment Future Appointment(s):03/03/2019 4:10 pm - Delores Myers MD at [facility]01/20/2019 - Delores Myers MDM54.5 Low back [...] the questions were answered appropriately, she expressed osernwqjgyyqwB62.25 Body mass index (BMI) 25.0-25.9 , adultComments:Weight loss is important, diet plus exercise is better than either alone. Functional Status Description No Information Available Mental Status Description No Information Available Referrals Description No Information Available
--- OUTSIDE RECORDS SUMMARY | 2019-03-03 17:25 | XMS REPORT | Continuity of Care Document ---
:1965 External Reference #:[id number] Author Name CE Cota (transmitted by agent of provider Mickey Christie) Address 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 Clair Cruz RPA-C Onset: 08/19/2018 Allergic rhinitis Mickey Christie MD Onset: 07/20/2018 Allergic rhinitis due to pollen Mickey Christie MD Onset: 07/20/2018 Social History Type Date Description Comments Sex Unknown Tobacco Use Start: Unknown End: Unknown Patient is a former smoker Smoking Status Reviewed: 03/03/19 Patient is a former smoker Allergies, Adverse Reactions, Alerts Active Allergies Reaction Severity Comments Date Sulfa Antibiotics 07/20/2018 Medications Active Medications SIG Qnty Indications Ordering Provider Date Qnasl [place] Two Sprays 8.7units J30.1 Obinna Minor 07/20/2018 80mcg/Act In Each Nostril RPA-C Aerosol Every Day Xyzal Allergy 24HR take 1 tablet (5 30tabs J30.1 Mickey Márquez 07/20/2018 mg) by oral MD Pratik 5mg Tablets route once daily as needed Atorvastatin Calcium Take One Tablet Unknown By Mouth AT 80mg Tablets Bedtime Omeprazole Take One Capsule Unknown 40mg By Mouth Every Capsules DR Day Levothyroxine Sodium Take One Tablet Unknown By Mouth Every 125mcg Tablets Day Before Breakfast Bupropion Take One Tablet Unknown Hydrochloride ER By Mouth Twice A (XL) Day 150mg Tablets ER 24HR Phentermine HCL Take One Capsule Unknown 15mg By Mouth Every Capsules Day Max Day 1 Prozac 1 by mouth every Unknown 10mg Capsules morning for two weeks Medications Administered in Office Medication SIG Qnty Indications Ordering Provider Date Allergy Injection 2 Or More Mickey Christie MD 03/03/2019 Injection Allergy Injection 2 Or More Mickey Christie MD 02/22/2019 Injection Allergy Injection 2 Or More Mickey Christie MD 02/15/2019 Injection Allergy Injection 2 Or More Mickey Christie MD 02/08/2019 Injection Allergy Injection 2 Or More Mickey Christie MD 02/01/2019 Injection Allergy Injection 2 Or More Mickey Christie MD 01/27/2019 Injection Allergy Injection 2 Or More Mickey Christie MD 01/18/2019 Injection Allergy Injection 2 Or More Mickey Christie MD 01/11/2019 Injection Allergy Injection 2 Or More Mickey Christie MD 01/04/2019 Injection Allergy Injection Single Mickey Christie MD 12/28/2018 Injection Allergy Injection 2 Or More Mickey Christie MD 12/21/2018 Injection Allergy Injection 2 Or More Mickey Christie MD 12/14/2018 Injection Allergy Injection 2 Or More Mickey Christie MD 12/09/2018 Injection Allergy Injection 2 Or More Mickey Christie MD 11/30/2018 Injection Allergy Injection 2 Or More Mickey Christie MD 11/25/2018 Injection Allergy Injection 2 Or More Mickey Christie MD 11/18/2018 Injection Allergy Injection 2 Or More Mickey Christie MD 11/11/2018 Injection Allergy Injection 2 Or More Mickey Christie MD 11/02/2018 Injection Allergy Injection 2 Or More Mickey Christie MD 10/28/2018 Injection Allergy Injection 2 Or More Mickey Christie MD 10/19/2018 Injection Allergy Injection 2 Or More Mickey Christie MD 2018 Injection Allergy Injection 2 Or More Mickey Christie MD 10/07/2018 Injection Allergy Injection 2 Or More Mickey Christie MD 10/05/2018 Injection Allergy Injection 2 Or More Mickey Christie MD 09/23/2018 Injection Allergy Injection 2 Or More Mickey Christie MD 09/14/2018 Injection Allergy Injection 2 Or More Mickey Christie MD 09/09/2018 Injection Allergy Injection 2 Or More Mickey Christie MD 08/26/2018 Injection Immunizations Description No Information Available Vital Signs Date Vital Result Comment 03/03/2019 11:03am BP Systolic 121 mmHg BP Diastolic 83 mmHg Height 66 inches 5'6" Weight 169.00 lb BMI (Body Mass Index) 27.3 kg/m2 Heart Rate 87 /min Respiratory Rate 16 /min O2 % BldC Oximetry 99 % 08/19/2018 2:03pm BP Systolic 114 mmHg BP Diastolic 76 mmHg Height 56 inches 4'8" Weight 169.00 lb BMI (Body Mass Index) 37.9 kg/m2 Heart Rate 92 /min Respiratory Rate 16 /min O2 % BldC Oximetry 96 % Results Description No Information Available Procedures Date Code Description Status 03/03/2019 02029 Allergy Injection 2 Or More Completed 02/22/2019 98868 Allergy Injection 2 Or More Completed 02/15/2019 54487 Allergy Injection 2 Or More Completed 02/08/2019 40111 Allergy Injection 2 Or More Completed 02/01/2019 06118 Allergy Injection 2 Or More Completed 01/27/2019 50907 Allergy Injection 2 Or More Completed 01/18/2019 45870 Allergy Injection 2 Or More Completed 01/11/2019 95861 Allergy Injection 2 Or More Completed 01/04/2019 65866 Allergy Injection 2 Or More Completed 12/28/2018 10178 Allergy Injection Single Completed 12/21/2018 06183 Allergy Injection 2 Or More Completed 12/14/2018 55375 Allergy Injection 2 Or More Completed 12/09/2018 99095 Allergy Injection 2 Or More Completed 11/30/2018 14110 Allergy Injection 2 Or More Completed 11/25/2018 01982 Allergy Injection 2 Or More Completed 11/18/2018 04428 Allergy Injection 2 Or More Completed 11/11/2018 79101 Allergy Injection 2 Or More Completed 11/02/2018 25144 Allergy Injection 2 Or More Completed 10/28/2018 50954 Allergy Injection 2 Or More Completed 10/19/2018 96160 Allergy Injection 2 Or More Completed 2018 40201 Allergy Injection 2 Or More Completed 10/07/2018 38140 Allergy Injection 2 Or More Completed 10/05/2018 81447 Allergy Injection 2 Or More Completed 09/23/2018 74558 Allergy Injection 2 Or More Completed 09/14/2018 00342 Allergy Injection 2 Or More Completed 09/09/2018 94592 Allergy Injection 2 Or More Completed Medical Devices Description No Information Available Encounters Type Date Location Provider Dx Diagnosis Office Visit 03/03/2019 11:00a [place] CE Cota J30.1 Allergic rhinitis due to pollen J30.89 Other allergic rhinitis Z91.018 Allergy to other foods Assessments Date Code Description Provider 03/03/2019 J30.1 Allergic rhinitis due to pollen CE Cota 03/03/2019 J30.1 Allergic rhinitis due to pollen Mickey Christie MD 03/03/2019 J30.89 Other allergic rhinitis [facility] 03/03/2019 J30.89 Other allergic rhinitis Mickey Christie MD 03/03/2019 Z91.018 Allergy to other foods [facility] 02/22/2019 J30.1 Allergic rhinitis due to pollen Mickey Christie MD 02/22/2019 J30.89 Other allergic rhinitis Mickey Christie MD 02/15/2019 J30.1 Allergic rhinitis due to pollen Mickey Christie MD 02/15/2019 J30.89 Other allergic rhinitis Mickey Christie MD 02/08/2019 J30.1 Allergic rhinitis due to pollen Mickey Christie MD 02/08/2019 J30.89 Other allergic rhinitis Mickey Christie MD 02/01/2019 J30.1 Allergic rhinitis due to pollen Mickey Christie MD 02/01/2019 J30.89 Other allergic rhinitis Mickey Christie MD 01/27/2019 J30.1 Allergic rhinitis due to pollen Mickey Christie MD 01/27/2019 J30.89 Other allergic binh Christie MD 01/18/2019 J30.1 Allergic rhinitis due to pollen Mickey Christie MD 01/18/2019 J30.89 Other allergic rhinitis Mickey Christie MD 01/11/2019 J30.1 Allergic rhinitis due to pollen Mickey Christie MD 01/11/2019 J30.89 Other allergic rhinitis Mickey Christie MD 01/04/2019 J30.1 Allergic rhinitis due to pollen Mickey Christie MD 01/04/2019 J30.89 Other allergic rhinitis Mickey Christie MD 12/28/2018 J30.1 Allergic rhinitis due to pollen Mickey Christie MD 12/28/2018 J30.89 Other allergic rhinitis Mickey Christie MD 12/21/2018 J30.1 Allergic rhinitis due to pollen Mickey Christie MD 12/21/2018 J30.89 Other allergic rhinitis Mickey Christie MD 12/14/2018 J30.1 Allergic rhinitis due to pollen Mickey Christie MD 12/14/2018 J30.89 Other allergic rhinitis Mickey Christie MD 12/09/2018 J30.1 Allergic rhinitis due to pollen Mickey Christie MD 12/09/2018 J30.89 Other allergic rhinitis Mickey Christie MD 11/30/2018 J30.1 Allergic rhinitis due to pollen Mickey Christie MD 11/30/2018 J30.89 Other allergic rhinitis Mickey Christie MD 11/25/2018 J30.1 Allergic rhinitis due to pollen Mickey Christie MD 11/25/2018 J30.89 Other allergic rhinitis Mickey Chirstie MD 11/18/2018 J30.1 Allergic rhinitis due to pollen Mickey Christie MD 11/18/2018 J30.89 Other allergic rhinitis Mickey Christie MD 11/11/2018 J30.1 Allergic rhinitis due to pollen Mickey Christie MD 11/11/2018 J30.89 Other allergic rhinitis Mickey Christie MD 11/02/2018 J30.1 Allergic rhinitis due to pollen Mickey Christie MD 11/02/2018 J30.89 Other allergic rhinitis Mickey Christie MD 10/28/2018 J30.1 Allergic rhinitis due to pollen Mickey Christie MD 10/28/2018 J30.89 Other allergic rhinitis Mickey Christie MD 10/19/2018 J30.1 Allergic rhinitis due to pollen Mickey Christie MD 10/19/2018 J30.89 Other allergic rhinitis Mickey Christie MD 2018 J30.1 Allergic rhinitis due to pollen Mickey Christie MD 2018 J30.89 Other allergic rhinitis Mickey Christie MD 10/07/2018 J30.1 Allergic rhinitis due to pollen Mickey Christie MD 10/07/2018 J30.89 Other allergic rhinitis Mickey Christie MD 10/05/2018 J30.1 Allergic rhinitis due to pollen Mickey Christie MD 10/05/2018 J30.89 Other allergic rhinitis Mickey Christie MD 09/23/2018 J30.1 Allergic rhinitis due to pollen Mickey Christie MD 09/23/2018 J30.89 Other allergic rhinitis Mickey Christie MD 09/14/2018 J30.1 Allergic rhinitis due to pollen Mickey Christie MD 09/14/2018 J30.89 Other allergic rhinitis Mickey Christie MD 09/09/2018 J30.1 Allergic rhinitis due to pollen Mickey Christie MD 09/09/2018 J30.89 Other allergic rhinitis Mickey Christie MD Plan of Treatment Future Appointment(s):03/01/2020 4:00 pm - CE Cota at [id number] 3:50 pm - Injection 1 at Qxt[facility]34/19/2019 - CE CotaJ30.1 Allergic rhinitis due to pollenComments:Patient to continue allergen immunotherapy injections. Patient is almost at maintenance dose. Patient to continue Qnasl for prophylaxis of her nose and Xyzal for breakthrough nasal symptoms. Patientencouraged to take a break from Qnasl if allergic rhinitis symptoms are being well controlled. Environmental controls discussed including dust mite proof pillow cases and mattress covers. Saline nasalrinse and HEPA air filter may help decrease allergens. Warm salt water gargles may help postnasal drip as well as clear the palate of allergens.Patient will continue to avoid foods that cause GI upset.Recommend vitamin D, 2000 units, daily.Follow up:one year30.89 Other allergic svkyvdtmC52.018 Allergy to other foods Functional Status Description No Information Available Mental Status Description No Information Available Referrals Description No Information Available
[2019-03-03 17:40] VITALS: BP 117/81
--- NOTE | 2019-03-03 17:52 | UC ---
Complaint Female HPI - HPI Summary HPI Summary: Pt presents with sudden onset urinary urgency, frequency, and dysuria X 1 day. Pt was seen at [facility] on 02/24/19 and given Macrobid X 5 days. Pt states she woke this mornig at 0300 with urinary frequency. - History Of Current Complaint Stated Complaint: UTI SYMPTOMS Time Seen by Provider: 03/03/19 17:32 Hx Obtained From: Patient Hx Last Menstrual Period: N/A ?: No Onset/Duration: Sudden Onset, Still Present Timing: Constant Severity Initially: Mild Severity Currently: Mild Pain Intensity: 5 Character: Sharp, Burning Aggravating Factor(s): Urination Associated Signs And Symptoms: Positive: Negative - Risk Factors Ectopic Risk Factor: Negative Ovarian Torsion Risk Factor: Negative - Allergies/Home Medications Allergies/Adverse Reactions: Allergies Allergy/AdvReac Type Severity Reaction Status Date / Time Sulfa (Sulfonamide Allergy Rash And Verified 03/03/19 17:27 Antibiotics) Itching tomato Allergy Hives Verified 03/03/19 17:27 Home Medications: Home Medications FLUoxetine* [Prozac*] 20 mg PO DAILY 03/03/19 [History Confirmed 03/03/19] Gabapentin CAP(*) [Neurontin 300 CAP(*)] 300 mg PO BID 03/03/19 [History Confirmed 03/03/19] PMH/Surg Hx/FS Hx/Imm Hx Previously Healthy: Yes Endocrine History: Dyslipidemia Psychological History: Anxiety, Depression - Surgical History Surgical History: Yes Surgery Procedure, Year, and Place: Partial Hysterectomy 2004/thyroidectomy, bladder sling, rhinoplasty, csection, ear tubes - Family History Known Family History: Positive: Hypertension, Other - Crohn's, thyroid cancer, lung cancer, ovarian cancer, Non-Contributory - Social History Occupation: Employed Full-time Lives: With Family Alcohol Use: Occasionally Substance Use Type: None Smoking Status (MU): Former Smoker Type: Cigarettes Amount Used/How Often: 1/2 PPD Length of Time of Smoking/Using Tobacco: 19 Years Have You Smoked in the Last Year: No When Did the Patient Quit Smoking/Using Tobacco: 2003 Household Exposure Type: Cigarettes - Immunization History Most Recent Influenza Vaccination: Not the 2016/2016 Season Vaccination Up to Date: No Review of Systems All Other Systems Reviewed And Are Negative: Yes Constitutional: Positive: Negative Skin: Positive: Negative Eyes: Positive: Negative ENT: Positive: Negative Respiratory: Positive: Negative Cardiovascular: Positive: Negative Gastrointestinal: Positive: Negative Genitourinary: Positive: Dysuria, Frequency, Urgency Motor: Positive: Negative Neurovascular: Positive: Negative Musculoskeletal: Positive: Negative Neurological: Positive: Negative Psychological: Positive: Negative Is Patient Immunocompromised?: No Physical Exam Triage Information Reviewed: Yes Appearance: Well-Appearing Vital Signs: Initial Vital Signs Temp 98.1 F 03/03/19 17:30 Pulse 67 03/03/19 17:30 Resp 18 03/03/19 17:30 BP 117/81 03/03/19 17:30 Pulse Ox 100 03/03/19 17:30 Vital Signs Reviewed: Yes Eye Exam: Normal ENT Exam: Normal Dental Exam: Normal Neck exam: Normal Respiratory Exam: Normal Cardiovascular Exam: Normal Abdominal Exam: Normal Musculoskeletal Exam: Normal Neurological Exam: Normal Psychological Exam: Normal Skin Exam: Normal Complaint Female Dx - Differential Dx/Diagnosis Differential Diagnosis/HQI/PQRI: Ureteral Stone, Urinary Tract Infection Provider Diagnosis: UTI (urinary tract infection) Discharge ED - Sign-Out/Discharge Documenting (check all that apply): Patient Departure All imaging exams completed and their final reports reviewed: No Studies - Discharge Plan Condition: Stable Disposition: HOME Prescriptions: Cephalexin CAP* [Keflex 500 CAP*] 500 mg PO Q8H #21 cap Patient Education Materials: Urinary Tract Infection in Women (ED) Referrals: Jennifer Noble PA [Primary Care Provider] - If Needed - Billing Disposition and Condition Condition: STABLE Disposition: Home
--- NOTE | 2019-03-06 08:38 | UC ---
- Progress Note Progress Note: Urine preliminary culture report reviewed: Escherichia coli more than 100,000 CFU/mL Patient is on Keflex Await final culture sensitivity report,no change in plan at this time Course/Dx - Diagnoses Provider Diagnoses: UTI (urinary tract infection) Discharge ED - Sign-Out/Discharge Documenting (check all that apply): Post-Discharge Follow Up All imaging exams completed and their final reports reviewed: No Studies - Discharge Plan Condition: Stable Disposition: HOME Prescriptions: Cephalexin CAP* [Keflex 500 CAP*] 500 mg PO Q8H #21 cap Patient Education Materials: Urinary Tract Infection in Women (ED) Referrals: Jennifer Noble PA [Primary Care Provider] - If Needed - Billing Disposition and Condition Condition: STABLE Disposition: Home
== END 2019-03-03 17:58 | disposition home or self-care (01) ==
LOC: UCCORT 17:04
DX: N39.0 Urinary tract infection, site not specified (principal); F32.9 Major depressive disorder, single episode, unspecified; F41.9 Anxiety disorder, unspecified; Z79.899 Other long term (current) drug therapy; Z91.018 Allergy to other foods; Z88.2 Allergy status to sulfonamides; Z87.891 Personal history of nicotine dependence
CPT/HCPCS: 81003; 87077; 87086; 87186; 99212; G0463

== ENCOUNTER 2019-04-03 12:18 | Emergency (ER) | payer BC ==
[2019-04-03 13:58] VITALS: BP 99/72
--- NOTE | 2019-04-03 14:10 | UC ---
Complaint Female HPI - HPI Summary HPI Summary: Pt presents with c/o sudden onset of urinary frequency, urgency and dysuria that began this morning. Pt had UTI diagnosed 1 month ago. - History Of Current Complaint Stated Complaint: UTI SYMPTOMS Hx Obtained From: Patient Hx Last Menstrual Period: N/A ?: No Onset/Duration: Sudden Onset, Lasting Days, Still Present Timing: Constant Severity Initially: Mild Severity Currently: Mild Pain Intensity: 3 Character: Sharp, Dull, Burning Aggravating Factor(s): Urination Associated Signs And Symptoms: Positive: Negative - Risk Factors Ectopic Risk Factor: Negative Ovarian Torsion Risk Factor: Hysterectomy - Allergies/Home Medications Allergies/Adverse Reactions: Allergies Allergy/AdvReac Type Severity Reaction Status Date / Time Sulfa (Sulfonamide Allergy Rash And Verified 04/03/19 13:59 Antibiotics) Itching tomato Allergy Hives Verified 04/03/19 13:59 PMH/Surg Hx/FS Hx/Imm Hx Previously Healthy: Yes - Surgical History Surgical History: Yes Surgery Procedure, Year, and Place: Partial Hysterectomy 2004/thyroidectomy, bladder sling, rhinoplasty, csection, ear tubes - Family History Known Family History: Positive: Hypertension, Other - Crohn's, thyroid cancer, lung cancer, ovarian cancer, Non-Contributory - Social History Occupation: Employed Full-time Lives: With Family Alcohol Use: Occasionally Substance Use Type: None Smoking Status (MU): Former Smoker Type: Cigarettes Amount Used/How Often: 1/2 PPD Length of Time of Smoking/Using Tobacco: 19 Years Have You Smoked in the Last Year: No When Did the Patient Quit Smoking/Using Tobacco: 2004 Household Exposure Type: Cigarettes - Immunization History Most Recent Influenza Vaccination: Not the 2015/2016 Season Vaccination Up to Date: No Review of Systems All Other Systems Reviewed And Are Negative: Yes Constitutional: Positive: Negative Skin: Positive: Negative Eyes: Positive: Negative ENT: Positive: Negative Respiratory: Positive: Negative Cardiovascular: Positive: Negative Gastrointestinal: Positive: Negative Genitourinary: Positive: Dysuria, Frequency, Urgency Motor: Positive: Negative Neurovascular: Positive: Negative Musculoskeletal: Positive: Negative Neurological: Positive: Negative Psychological: Positive: Negative Is Patient Immunocompromised?: No Physical Exam Triage Information Reviewed: Yes Appearance: Well-Appearing Vital Signs: Initial Vital Signs Temp 98.8 F 04/03/19 13:54 Pulse 77 04/03/19 13:54 Resp 18 04/03/19 13:54 BP 99/72 04/03/19 13:54 Pulse Ox 97 04/03/19 13:54 Vital Signs Reviewed: Yes Eye Exam: Normal ENT Exam: Normal Dental Exam: Normal Neck exam: Normal Respiratory Exam: Normal Cardiovascular Exam: Normal Abdomen Description: Positive: CVA Tenderness (R) Musculoskeletal Exam: Normal Neurological Exam: Normal Psychological Exam: Normal Skin Exam: Normal Complaint Female Dx - Differential Dx/Diagnosis Differential Diagnosis/HQI/PQRI: Urinary Tract Infection Provider Diagnosis: UTI (urinary tract infection) Discharge ED - Sign-Out/Discharge Documenting (check all that apply): Patient Departure All imaging exams completed and their final reports reviewed: No Studies - Discharge Plan Condition: Stable Disposition: HOME Prescriptions: Nitrofurantoin Monohyd/M-Cryst [Macrobid 100 mg Capsule] 100 mg PO Q12H #10 cap Patient Education Materials: Urinary Tract Infection in Women (ED) Referrals: Jennifer Noble PA [Primary Care Provider] - As Soon As Possible Oniel Johnson MD [Medical Doctor] - As Soon As Possible Raymond Hernandez MD [Medical Doctor] - As Soon As Possible - Billing Disposition and Condition Condition: STABLE Disposition: Home - Attestation Statements Provider Attestation: I was available for consult. This patient was seen by the [facility]. The patient was not presented to , seen by or examined by id -Delores Myers MD
== END 2019-04-03 14:24 | disposition home or self-care (01) ==
LOC: UCCORT 12:18
DX: N39.0 Urinary tract infection, site not specified (principal); Z88.2 Allergy status to sulfonamides; Z91.018 Allergy to other foods; Z87.891 Personal history of nicotine dependence
CPT/HCPCS: 81003; 87086; 99212; G0463

== ENCOUNTER 2019-05-25 07:32 | Emergency (ER) | payer BC ==
--- OUTSIDE RECORDS SUMMARY | 2019-05-25 07:38 | XMS REPORT | Continuity of Care Document ---
:1965 External Reference #:[id number] Author Name Louis Kay M.D. 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 Onset: 04/12/2019 Strain of rotator cuff capsule Sam Martinez MD Onset: 06/14/2012 Social History Type Date Description Comments Sex Unknown Tobacco Use Start: Unknown Never Smoked Cigarettes ETOH Use Rarely consumes alcohol Tobacco Use Start: Unknown End: Unknown Patient is a former smoker Recreational Drug Use Denies Drug Use Smoking Status Reviewed: 04/12/19 Patient is a former smoker Allergies, Adverse Reactions, Alerts Active Allergies Reaction Severity Comments Date Sulfa Drugs 06/14/2012 Medications Active Medications SIG Qnty Indications Ordering Provider Date Myrbetriq 1 by mouth 30tabs N32.81 Louis Kay 04/12/2019 50mg Tablets ER every day M.D. 24HR Prozac Unknown 20mg Capsules Levothyroxine Sodium Unknown 112mcg Tablets Nasonex Unknown 50mcg/Act Suspension Singulair Unknown 10mg Tablets Omeprazole Unknown 20mg Capsules DR Wellbutrin XL 1 by mouth Unknown 300mg Tablets every day ER 24HR Hydroxyzine HCL 1 tab as needed Unknown 10mg Tablets Immunizations Description No Information Available Vital Signs Date Vital Result Comment 04/12/2019 3:12pm BP Systolic 118 mmHg BP Diastolic 69 mmHg Body Temperature 98.7 F Heart Rate 83 /min Respiratory Rate 17 /min Height 66.5 inches 5'6.50" Weight 168.25 lb Pain Level 3 right lower abdomen BMI (Body Mass Index) 26.7 kg/m2 BSA (Body Surface Area) 1.87 m2 [place] body weight in kilograms 60 kg O2 % BldC Oximetry 98 % 06/14/2012 8:39am BP Systolic Sitting Right Arm 140 mmHg BP Diastolic Sitting Right Arm 80 mmHg Height 67 inches 5'7" Weight 171.00 lb BMI (Body Mass Index) 26.8 kg/m2 Results Test Acquired Date Facility Test Result H/L Range Note Urinalysis With 04/12/2019 [facility] Urine Color STRAW Yellow [address] [place] [address] [phone] Urine Clarity SL CLOUDY Clear Urine Glucose - Dipstick NEGATIVE mg/dL Negative Urine Bilirubin - Dipstick NEGATIVE Negative Urine Ketone NEGATIVE mg/dL Negative Urine Specific [place] <= 1.005 Low 1.010-1.030 Urine Blood TRACE Negative Urine PH 5.0 Low 6.5-7.5 Urine Protein - Dipstick NEGATIVE mg/dL Negative Urine Urobilinogen - Dipstick 0.2 E.U./dL Normal 0.2-1.0 Urine Nitrite - Dipstick NEGATIVE Negative Urine Leuk Esterase NEGATIVE Negative Source: URINE, CLEAN CAT <SEE NOTE> 2 Urine RBC 0-2 rbc/hpf 0-2 Urine Epithelial Cells VERY FEW /lpf None Seen Urine Uric Acid Crystals FEW None Seen Urine Mucus VERY FEW None Seen Basic Metabolic Panel 04/12/2019 [facility] Glucose 90 mg/dL Normal 74-106 [address] [place] [address] [phone] BUN 15 mg/dL Normal 7-18 Creatinine 1.0 mg/dL Normal 0.6-1.3 Glom Filtration Rate, Estimate >60 mL/min >60 If >60 mL/min >60 3 BUN/Creat 15.0 ratio Sodium 137 mmol/L Normal 136-145 Potassium 3.9 mmol/L Normal 3.5-5.1 Chloride 105 mmol/L Normal 98-107 Carbon Dioxide 27 mmol/L Normal 21-32 Anion Gap 5 mEq/L Low 8-16 Calcium 9.1 mg/dL Normal 8.5-10.1 Urine Dipstick 04/12/2019 [facility] Ua Color yellow Yellow Ua Clarity clear Clear Ua Leuko neg Negative Ua Nitrite neg Negative Ua Urobilinogen 0.2 0.2 - 1.0 E.U./dL Ua Protein neg Negative Ua PH 6.0 Low 6.5-7.5 Ua Blood 25 High Negative Ua Specific [place] 1.015 1.010-1.030 Ua Ketones neg Negative Ua Bilirubin neg Negative Ua Glucose neg Negative Urine Culture And 04/03/2019 [facility] Urine SEE RESULT 4, 5 Sensitivities [phone] Culture BELOW Poc Urinalysis 04/03/2019 [facility] Poc NEGATIVE Negative [phone] Glucose, Urine Poc Bilirubin, Urine NEGATIVE Negative Poc Ketone, Urine NEGATIVE Negative Poc Specific [place], Urine <= 1.005 Low 1.010-1.030 Poc Blood, Urine TRACE-INTACT Negative 6 Poc pH, Urine 6.0 Normal 5-9 Poc Protein, Urine NEGATIVE Negative Poc Urobilinogen, Urine 0.2 Negative Poc Nitrite, Urine POSITIVE Negative Poc Leukocytes, Urine 1+ Abnormal Negative Poc Color, Urine YELLOW Poc Clarity, Urine CLEAR 1 R31.21 2 URINE, CLEAN CATCH 3 Note: Persistent reduction for 3 months or more in an eGFR <60 mL/min/1.73 m2 defines CKD. Patients with eGFR values >/=60 mL/min/1.73 m2 may also have CKD if evidence of persistent proteinuria is present. The original MDRD equation for estimated GFR is not valid for patients less than 18 years of age. Additional information may be found at www.kdoqi.org. 4 [id number] 5 SEE RESULT BELOW Name: EWELINA CÁRDENAS : [address]: Delores Myers MD Acct: [id number] Unit: [id number] AGE: 53 Location: [facility] Re04/03/19 SEX: F Status: DEP ER SPEC: [id number] SUAD: 04/03/19-[address] [facility] [address]: Amy Horne Edilia SOCIOLOGY PROFESSOR REQ: [id number] RECD: 04/04/19-1055 STATUS: HARRIET HENSLEY DR: Delores Noble PA _ SOURCE: URINE SPDESC: ORDERED: Urine Culture COMMENTS: [id number] QUERIES: Urine Source: Random Procedure Result Reported Site Urine Culture Final 04/05/19- 1100 ML No growth of clinically significant organisms * ML - Main Lab . END OF REPORT DEPARTMENT OF PATHOLOGY, [address] [place] [address] Melecio Mckeon M.D. Director [facility] # [id number] 6 Financial Reporting Accountant: [id number] Procedures Date Code Description Status 08/17/2006 [id number] Mammogram Completed 12/29/2005 [id number] Mammogram Completed 06/27/2005 [id number] Mammogram Completed 06/13/2005 [id number] Mammogram Completed 06/14/2004 [id number] Mammogram Completed Medical Devices Description No Information Available Encounters Type Date Location Provider Dx Diagnosis Office Visit 04/12/2019 3:15p Urology Louis Kay N32.81 Karina gonsalez M.D. Assessments Date Code Description Provider 04/12/2019 N32.81 Overactive bladder Louis Kay M.D. Plan of Treatment Future Appointment(s):04/28/2019 3:00 pm - Louis Kay M.D. at [email or web address] - Louis Kay M.D.N32.81 Overactive bladderNew Medication: Myrbetriq 50 mg - 1 by mouth every dayComments:Pt with overactive bladder symptoms, I dont feel she has UTIs per last culture, will do a trial of Myrbetriq. Will send UA for a urine analysis. Functional Status Description No Information Available Mental Status Description No Information Available Referrals Description No Information Available
--- OUTSIDE RECORDS SUMMARY | 2019-05-25 07:38 | XMS REPORT | Continuity of Care Document ---
:1965 External Reference #:[id number] Author Name Louis Kay M.D. Address [address] 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 Onset: 04/12/2019 Strain of rotator cuff capsule Sam Martinez MD Onset: 06/14/2012 Social History Type Date Description Comments Sex Unknown Tobacco Use Start: Unknown Never Smoked Cigarettes ETOH Use Rarely consumes alcohol Tobacco Use Start: Unknown End: Unknown Patient is a former smoker Recreational Drug Use Denies Drug Use Smoking Status Reviewed: 04/14/19 Patient is a former smoker Allergies, Adverse Reactions, Alerts Active Allergies Reaction Severity Comments Date Sulfa Drugs 06/14/2012 Medications Active Medications SIG Qnty Indications Ordering Provider Date Tolterodine Tartrate ER 1 by mouth 30caps N32.81 Louis Kay, 2019 4mg every day M.D. Caps ER 24HR Prozac Unknown 20mg Capsules Levothyroxine Sodium Unknown 112mcg Tablets Nasonex Unknown 50mcg/Act Suspension Singulair Unknown 10mg Tablets Omeprazole Unknown 20mg Capsules DR Wellbutrin XL 1 by mouth Unknown 300mg Tablets every day ER 24HR Hydroxyzine HCL 1 tab as needed Unknown 10mg Tablets History Medications Myrbetriq 1 by mouth 30tabs N32.81 Louis Kay, 04/12/2019 - 50mg every day M.D. 04/28/2019 Tablets ER 24HR Immunizations Description No Information Available Vital Signs Date Vital Result Comment 04/28/2019 3:01pm BP Systolic Sitting Left Arm 114 mmHg BP Diastolic Sitting Left Arm 73 mmHg Body Temperature 98.6 F Heart Rate 86 /min Respiratory Rate 16 /min Height 66.5 inches 5'6.50" Weight 169.00 lb Pain Level 0 BMI (Body Mass Index) 26.9 kg/m2 BSA (Body Surface Area) 1.87 m2 [place] body weight in kilograms 60 kg O2 % BldC Oximetry 97 % 04/12/2019 3:12pm BP Systolic 118 mmHg BP Diastolic 69 mmHg Body Temperature 98.7 F Heart Rate 83 /min Respiratory Rate 17 /min Height 66.5 inches 5'6.50" Weight 168.25 lb Pain Level 3 right lower abdomen BMI (Body Mass Index) 26.7 kg/m2 BSA (Body Surface Area) 1.87 m2 [place] body weight in kilograms 60 kg O2 % BldC Oximetry 98 % Results Test Acquired Date Facility Test Result H/L Range Note Urine Dipstick 04/28/2019 [facility] Ua Color yellow Yellow Ua Clarity clear Clear Ua Leuko neg Negative Ua Nitrite neg Negative Ua Urobilinogen 0.2 0.2 - 1.0 E.U./dL Ua Protein 15 High Negative Ua PH 5.0 Low 6.5-7.5 Ua Blood 10 High Negative Ua Specific [place] 1.030 1.010-1.030 Ua Ketones 5 High Negative Ua Bilirubin neg Negative Ua Glucose neg Negative Urinalysis With 04/12/2019 [facility] Urine Color STRAW Yellow [address] [place] [address] [phone] Urine Clarity SL CLOUDY Clear Urine Glucose - Dipstick NEGATIVE mg/dL Negative Urine Bilirubin - Dipstick NEGATIVE Negative Urine Ketone NEGATIVE mg/dL Negative Urine Specific [place] <= 1.005 Low 1.010-1.030 Urine Blood TRACE [...] FEW None Seen Basic Metabolic Panel 04/12/2019 [facility] Glucose 90 mg/dL Normal 74-106 [address] [place] [place] [address] [phone] BUN 15 mg/dL Normal 7-18 Creatinine 1.0 [...] Ua Blood 25 High Negative Ua Specific [place] 1.015 1.010-1.030 Ua Ketones neg Negative Ua Bilirubin neg Negative Ua Glucose neg Negative Urine Culture And 04/03/2019 [facility] Urine SEE RESULT 4, 5 Sensitivities [phone] Culture BELOW Poc Urinalysis 04/03/2019 [facility] Poc NEGATIVE Negative [phone] Glucose, Urine Poc Bilirubin, Urine NEGATIVE Negative Poc Ketone, Urine NEGATIVE Negative Poc Specific [place], Urine <= 1.005 Low 1.010-1.030 Poc Blood, [...] information may be found at www.kdoqi.org. 4 [id number] 5 SEE RESULT BELOW Name: EWELINA CÁRDENAS : [address]: Delores Myers MD Acct: [id number] Unit: [id number] AGE: 53 Location: [facility] Re04/03/19 SEX: F Status: DEP ER SPEC: [id number] SUAD: 04/03/19-1408 [facility] DR: Amy Yeboah NP REQ: [id number] RECD: 04/04/19-1054 STATUS: HARRIET HENSLEY DR: Delores Noble PA _ SOURCE: URINE SPDESC: ORDERED: Urine Culture COMMENTS: [id number] QUERIES: Urine Source: Random Procedure Result Reported Site Urine Culture Final 04/05/19- 1100 ML No growth of clinically significant organisms * ML - Main Lab . END OF REPORT DEPARTMENT OF PATHOLOGY, [address] [place] [address] Melecio Mckeon M.D. Director [facility] # [id number] 6 House Wirer: [id number] Procedures Date Code Description Status 04/28/2019 33624 Cystoscopy Completed 04/12/2019 36319 Measurement Post Voiding Residual Urine By Completed Ultrasound,Non-Imaging 08/17/2006 [id number] Mammogram Completed 12/29/2005 [id number] Mammogram Completed 06/27/2005 [id number] Mammogram Completed 06/13/2005 [id number] Mammogram Completed 06/14/2004 [id number] Mammogram Completed Medical Devices Description No Information Available Encounters Type Date Location Provider Dx Diagnosis Office Visit 04/28/2019 3:00p Urology Louis Kay N32.81 Overactive bladder M.D. Office Visit 04/12/2019 3:15p Urology Louis Kay N32.81 Overactive bladder [email or web address] Assessments Date Code Description Provider 04/28/2019 [facility] Overactive Louis Santos M.D. 04/12/2019 [facility] Overactive bladder Louis Kay M.D. Plan of Treatment Future Appointment(s):06/03/2019 8:00 am - Louis Kay M.D. at Urology Functional Status Description No Information Available Mental Status Description No Information Available Referrals Description No Information Available
--- OUTSIDE RECORDS SUMMARY | 2019-05-25 07:38 | XMS REPORT | Summary of Care ---
:1965 Author Organization [facility] Address [address] [address] Care Team Providers Name Role Phone Rizwana Bernal MD Primary Care Provider Reason for Referral MRI/CAT/PET Scan (Routine) Status Reason Specialty Diagnoses / Referred By Referred To Procedures Contact Contact Authorized Diagnoses Thyroid disease Harriet Arita, Procedures US SOFT TISSUE HEAD NECK ULTRASOUND [employer] [address] [id number] Reason for Visit Reason Comments Follow Up Hypothyroidism Encounter Details Date Type Department Care Team Description 04/28/2019 Office Visit Harriet Landa, Hypothyroidism, unspecified type (Primary Dx); Endocrinology-[facility] [employer] Thyroid disease; [facility] [address] Muscle ache [place] [address] [address] [address] Allergies Active Allergy Reactions Severity Noted Date Comments Sulfa Antibiotics Hives 10/22/2007 documented as of this encounter (statuses as of 04/28/2019) Medications Medication Sig Dispensed Refills Start Date End Date Status Cholecalciferol Take by mouth. 0 Active (VITAMIN D3) 2000 UNITS Oral Cap buPROPion (WELLBUTRIN Take 1 Tab by 30 Tab 5 04/14/2016 Active XL) 150 MG Oral TABLET mouth DAILY. SUDHIR SR 24 HR wellbutrin xl Additional Information Patient taking differently: 300 mg Oral DAILY, SUDHIR wellbutrin xl, Reported on 04/23/2017 1:02 PM atorvastatin (LIPITOR) 40 MG Take 80 mg by mouth DAILY. 0 Active Oral Tab levothyroxine (SYNTHROID) 125 TAKE ONE TABLET BY MOUTH 30 Tab 4 10/04/2018 Active MCG Oral Tab EVERY DAY BEFORE BREAKFAST Additional Information Patient taking differently: 112 mcg, Reported on 04/28/2019 9:41 AM Beclomethasone [place] in nose. 0 Active Dipropionate (QNASL) 80 MCG/ACT Nasal Aero Soln fluoxetine (PROZAC) 20 Take 20 mg by 0 Active MG Oral Cap mouth DAILY. Mirabegron ER 50 MG Oral Take by mouth. 0 Active TABLET SR 24 HR Omeprazole 40 MG Oral Take by mouth. 0 Active CAPSULE DELAYED RELEASE gabapentin (NEURONTIN) Take 300 mg by 0 Active 300 MG Oral Cap mouth DAILY. Levocetirizine Take by mouth. 0 Active Dihydrochloride (XYZAL) 5 MG Oral Tab Topiramate 50 MG Oral TAKE ONE TABLET 30 Tab 5 04/28/19 Discontinued (Other) Tab BY MOUTH EVERY 9 20 DAY Phentermine HCl 15 MG Take 1 Cap by 30 Cap 5 04/28/19 Discontinued (Other) Oral Cap mouth DAILY. 9 20 Max Daily Amount: 15 mg. documented as of this encounter (statuses as of 04/28/2019) Active Problems Problem Noted Date Other screening mammogram 08/31/2007 Other specified pre-operative examination 01/20/2007 Excessive or frequent menstruation 01/01/2007 Dysmenorrhea 01/01/2007 Female stress incontinence 01/01/2007 Abdominal pain, other specified site 01/01/2007 Dyspareunia 01/01/2007 documented as of this encounter (statuses as of 04/28/2019) Social History Tobacco Use Types Packs/Day Years Used Date Former Smoker Quit: 04/04/2003 Alcohol Use Drinks/Week oz/Week Comments Yes OCCASIONAL Sex Assigned at Date Recorded Not on file documented as of this encounter Last Filed Vital Signs Vital Sign Reading Time Taken Comments Blood Pressure 120/82 04/28/2019 9:36 AM EST Pulse 88 04/28/2019 9:36 AM EST Temperature - - Respiratory Rate - - Oxygen Saturation 96% 04/28/2019 9:36 AM EST Inhaled Oxygen Concentration - - Weight 76.2 kg (168 lb) 04/28/2019 9:36 AM EST Height - - Body Mass Index 26.71 04/21/2018 1:04 PM EST documented in this encounter Patient Instructions Patient InstructionsHarriet Arita NP - 04/28/2019 9:30 AM ESTGo to [place] get a Relion meter, strips, lancets check blood sugar fasting Goal 80-130, Call in blood sugars in 2 weeks [phone] Increase dose of Levothyroxine to 7 days per week, after 2 weeks if not feeling better Get labs If after 2 weeks you are feeling better wait additional 2 weeks to get labs Ultrasound of thyroid Follow up in 6 monthsElectronically signed by Harriet Arita NP at 2019 10:16 AM EST documented in this encounter Progress Notes Harriet Arita NP - 04/28/2019 9:30 AM EST PATIENT: Ewelina Cárdenas : 1965 DATE OF SERVICE: 04/28/2019 CHIEF COMPLAINT: Chief Complaint Patient presents with ? Follow Up ? Hypothyroidism Subjective HISTORY OF PRESENT ILLNESS: Ewelina Cárdenas is a 53-y.o. female here for follow up for post surgical hypothyroidism. Had completion thyroidectomy for benign nodules in 2010 and prior partial throidectomy in late .. She has family history of thyroid cancer ( her mother and daughter). Labs reviewed? HPI Takes:Levothyroxine 112 mcg 7 days per week, just changed from 6 days per week Last TSH:1.92, Free T4 1.10 from [place] office Results for EWELINA CÁRDENAS ( ) as of 04/27/2019 21:09 Ref. Range 06/11/2017 08:18 04/21/2018 13:20 TSH Latest Ref Range: 0.47 - 4.68 uIu/ml <0.02 (L) 0.40 (L) Free T4 Latest Ref Range: 0.8 - 2.2 NG/DL 2.0 1.3 Complains of Constipation/diarrhea: Constipation, chronic Temp intolerance: more warm Change in hair, skin, or nails: hands dry, hair is flat drier Palpitations: no Tremors:no Unintentional weight gain or loss: trying to lose, holding steady Energy level: steady Exposure to radiation: no Growth in neck:no Dysphagia/dysphonia/dyspnea: dysphagia, hoarse Family history of thyroid disease: + Past Medical History: Diagnosis Date ? Anxiety ? Depression ? Dysmenorrhea 01/01/2007 ? Dyspareunia 01/01/2007 ? Fibroid ? Inverted nipple inverted nipple lt. breast-since age 19. ? Other postprocedural status(V45.89) left stereo benign 2006. ? Personal history of contraception, presenting hazards to health in the past. ? Postmenopausal partial hysterectomy at age 40. Family History Problem Relation Age of Onset ? Thyroid Mother ? Cancer Father ? GI Father ? Cervical Cancer Sister ? Uterine Cancer Paternal Grandmother ? Cervical Cancer Paternal Grandmother Current Outpatient Medications Medication Sig ? atorvastatin (LIPITOR) 40 MG Oral Tab Take 80 mg by mouth DAILY. ? Beclomethasone Dipropionate (QNASL) 80 MCG/ACT Nasal Aero Soln [place] in nose. ? buPROPion (WELLBUTRIN XL) 150 MG Oral TABLET SR 24 HR Take 1 Tab by mouth DAILY. SUDHIR wellbutrin xl (Patient taking differently: Take 300 mg by mouth DAILY. SUDHIR wellbutrin xl) ? Cholecalciferol (VITAMIN D3) 2000 UNITS Oral Cap Take by mouth. ? fluoxetine (PROZAC) 20 MG Oral Cap Take 20 mg by mouth DAILY. ? gabapentin (NEURONTIN) 300 MG Oral Cap Take 300 mg by mouth DAILY. ? Levocetirizine Dihydrochloride (XYZAL) 5 MG Oral Tab Take by mouth. ? levothyroxine (SYNTHROID) 125 MCG Oral Tab TAKE ONE TABLET BY MOUTH EVERY DAY BEFORE BREAKFAST (Patient taking differently: 112 mcg.) ? Mirabegron ER 50 MG Oral TABLET SR 24 HR Take by mouth. ? Omeprazole 40 MG Oral CAPSULE DELAYED RELEASE Take by mouth. No current facility-administered medications for this visit. Allergies Allergen Reactions ? Sulfa Antibiotics Hives Social History Socioeconomic History ? Marital status: Spouse name: Not on file ? Number of children: Not on file ? Years of education: Not on file ? Highest education level: Not on file Occupational History ? Not on file Social Needs ? Financial resource strain: Not on file ? Food insecurity Worry: Not on file Inability: Not on file ? Transportation needs Medical: Not on file Non-medical: Not on file Tobacco Use ? Smoking status: Former Smoker Last attempt to quit: 04/04/2003 Years since quittin.0 Substance and Sexual Activity ? Alcohol use: Yes Comment: OCCASIONAL ? Drug use: No ? Sexual activity: Yes Partners: Male control/protection: Surgical Lifestyle ? Physical activity Days per week: Not on file Minutes per session: Not on file ? Stress: Not on file Relationships ? Social connections Talks on phone: Not on file Gets together: Not on file Attends scientologist service: Not on file Active member of club or organization: Not on file Attends meetings of clubs or organizations: Not on file Relationship status: Not on file ? Intimate partner violence Fear of current or ex partner: Not on file Emotionally abused: Not on file Physically abused: Not on file Forced sexual activity: Not on file Other Topics Concern ? Not on file Social History Narrative ? Not on file REVIEW OF SYSTEMS: Review of Systems Constitutional: Negative for chills, fever, malaise/fatigue and weight loss. Eyes: Negative for blurred vision and double vision. Respiratory: Negative for shortness of breath and wheezing. Cardiovascular: Negative for chest pain, palpitations and leg swelling. Gastrointestinal: Negative for abdominal pain, blood in stool, constipation, diarrhea, nausea and vomiting. Genitourinary: Negative for dysuria and hematuria. Musculoskeletal: Negative for falls and myalgias. Skin: Negative for rash. Neurological: Negative for dizziness, tingling, seizures and loss of consciousness. Endo/Heme/Allergies: Negative for polydipsia. Does not bruise/bleed easily. Psychiatric/Behavioral: Negative for depression. The patient is not nervous/ anxious. Objective PHYSICAL EXAM: VITALS: BP 120/82 | Pulse 88 | Wt 168 lb (76.2 kg) | SpO2 96% | BMI 26.71 kg/m Body mass index is 26.71 kg/m. Physical Exam Vitals signs and nursing note reviewed. Constitutional: Appearance: Normal appearance. She is well-developed. HENT: Head: Normocephalic and atraumatic. Eyes: Pupils: Pupils are equal, round, and reactive to light. Neck: Musculoskeletal: Neck supple. Thyroid: No thyromegaly or thyroid tenderness. Trachea: No tracheal deviation. Cardiovascular: Rate and Rhythm: Normal rate and regular rhythm. Pulses: Normal pulses. Heart sounds: Normal heart sounds. No murmur. Pulmonary: Effort: Pulmonary effort is normal. Breath sounds: Normal breath sounds. Abdominal: General: Bowel sounds are normal. Palpations: Abdomen is soft. Tenderness: There is no abdominal tenderness. There is no guarding. Musculoskeletal: Right lower leg: No edema. Left lower leg: No edema. Lymphadenopathy: Cervical: No cervical adenopathy. Skin: General: Skin is warm and dry. Findings: No rash. Neurological: Mental Status: She is alert and oriented to person, place, and time. Deep Tendon Reflexes: Reflexes normal. Psychiatric: Mood and Affect: Mood normal. Behavior: Behavior normal. Thought Content: Thought content normal. Judgment: Judgment normal. ASSESSMENT / IMPRESSION: ICD-9-CM ICD-10-CM 1. Hypothyroidism, unspecified type Clinically hypothyroid, chemically euthyroid. Continue to take Levothyroxine 7 days per week. Labs In 2 weeks if not feeling better, 4 weeks if you feel better after 2 weeks. Follow up in 6 months. 244.9 E03.9 T3, FREE THYROID STIMULATING HORMONE FREE T4 2. Thyroid disease Ultrasound of thyroid. 246.9 E07.9 US SOFT TISSUE HEAD NECK ULTRASOUND 3. Muscle ache Labs ordered. 729.1 M79.10 MAGNESIUM LEVEL Plan Author: Harriet Arita NP 04/28/2019 12:59 documented in this encounter Plan of Treatment Date Type Specialty Care Team Description 10/28/2019 Office Visit Endocrinology Harriet Arita NP [address] [address] [phone] Name Type Priority Associated Diagnoses Order Schedule T3, FREE Lab Routine Hypothyroidism, Expected: 04/28/2019 unspecified type (Approximate), Expires: 04/28/2020 THYROID STIMULATING Lab Routine Hypothyroidism, Expected: 04/28/2019 HORMONE unspecified type (Approximate), Expires: 04/28/2020 FREE T4 Lab Routine Hypothyroidism, Expected: 04/28/2019 unspecified type (Approximate), Expires: 04/28/2020 US SOFT TISSUE HEAD NECK Imaging Routine Thyroid disease Expected: ULTRASOUND 04/28/2019, Expires: 04/27/2020 MAGNESIUM LEVEL Lab Routine Muscle ache Expected: 04/28/2019 (Approximate), Expires: 04/28/2020 Health Maintenance Due Date Last Done Comments DTaP/Tdap/Td Vaccines (1 - 1976 Tdap) DEPRESSION SCREENING 1977 HIV SCREENING 1980 MAMMOGRAM (SCREENING) 11/26/2013 11/26/2012, 11/21/2011, 10/11/2010, Additional history exists Colonoscopy 10/15/2015 ZOSTER IMMUNIZATION SERIES 10/15/2015 (1 of 2) PAP SMEAR 11/27/2015 11/26/2012, 10/11/2010, 09/08/2008, Additional history exists INFLUENZA VACCINE (#1) 2018 DIABETES SCREENING 04/21/2019 04/21/2018, 04/03/2016 LIPID DISORDER SCREENING 04/21/2023 04/21/2018, 04/23/2017, 10/28/2007 HEPATITIS A IMMUNIZATION Aged Out No longer eligible SERIES based on patient's age to complete this topic HPV IMMUNIZATION SERIES Aged Out No longer eligible based on patient's age to complete this topic MENINGOCOCCAL VACCINE IMM Aged Out No longer eligible based on patient's age to complete this topic PNEUMOCOCCAL 0-64 YRS Aged Out No longer eligible based on patient's age to complete this topic documented as of this encounter Results Not on filedocumented in this encounter Visit Diagnoses Diagnosis Thyroid disease Unspecified disorder of thyroid Hypothyroidism, unspecified type Muscle ache Mylagia and myositis, unspecified documented in this encounter Insurance Payer Benefit Plan / Subscriber ID Effective Dates Phone Address Type Group [employer] [id number] 2014-Present [employer] Guarantor Name Account Type Relation to Date of Phone Billing Address Patient Ewelina Cárdenas Personal/Famil 1965 [address] (Home) JB PARIKH [phone] [place], [place] (Work) [id number] documented as of this encounter"
[2019-05-25 07:46] VITALS: BP 126/79
--- NOTE | 2019-05-25 08:07 | UC ---
UC General HPI - HPI Summary HPI Summary: 53 yo woman, generally well despite chronic back pain and anxiety, with about 6 days of malaise. Was off work 05/19 due to malaise, improved, but late on 05/22 developed nausea and loose stools. Multiple loose non-bloody stools x 3 days, last stool this morning at 05:30. Developed a headache yesterday on the left side of her head, with malaise and photophobia, no vision changes. Little oral intake x 2 days due to loose stools, mostly water and some coffee. had one day of loose stools and improved. - History of Current Complaint Chief Complaint: UCHeadache Stated Complaint: HEADACHE DIARRHEA Time Seen by Provider: 05/25/19 08:04 Hx Obtained From: Patient Hx Last Menstrual Period: N/A Onset/Duration: Gradual Onset, Lasting Days, Worse Since - yestersay-->headache worse. Timing: Constant Onset Severity: Moderate Current Severity: Moderate Pain Intensity: 8 Associated Signs & Symptoms: Positive: Abdominal Pain - only became aware of pain in the RLQ with palpation on exam today, Diarrhea, Decreased Oral Intake, Headache, Nausea. Negative: Anticoagulation Therapy, Cough, Chest Pain, Dizziness, Diaphoresis, Fever, SOB, Vomiting, Wheezing - Allergy/Home Medications Allergies/Adverse Reactions: Allergies Allergy/AdvReac Type Severity Reaction Status Date / Time Sulfa (Sulfonamide Allergy Rash And Verified 05/25/19 07:41 Antibiotics) Itching tomato Allergy Hives Verified 05/25/19 07:41 Home Medications: Home Medications Bupropion XL* [Wellbutrin XL *] 300 tab PO DAILY 10/24/14 [History Confirmed 02/02] Cholecalciferol TAB* [Vitamin D TAB*] 2,000 unit PO DAILY 06/01/17 [History Confirmed 05/25/19] Omeprazole 80 mg PO BEDTIME 09/04/17 [History Confirmed 05/25/19] Pravastatin Sodium [Pravachol] 80 mg PO DAILY 12/11/17 [History Confirmed ] FLUoxetine* [Prozac*] 20 mg PO DAILY 03/03/19 [History Confirmed 05/25/19] Gabapentin CAP(*) [Neurontin 300 CAP(*)] 300 mg PO DAILY 03/03/19 [History Confirmed 05/25/19] Fexofenadine (NF) [Cynthia 180 (NF)] 180 mg PO DAILY 05/25/19 [History Confirmed 05/25/19] Levothyroxine TAB* [Synthroid TAB*] 125 mcg PO DAILY 05/25/19 [History Confirmed 05/25/19] PMH/Surg Hx/FS Hx/Imm Hx Previously Healthy: Yes Endocrine History: Hypothyroidism GI/ History: Gastroesophageal Reflux Psychological History: Anxiety - Surgical History Surgical History: Yes Surgery Procedure, Year, and Place: Partial Hysterectomy 2004/thyroidectomy, bladder sling, rhinoplasty, csection, ear tubes - Family History Known Family History: Positive: Hypertension, Other - Crohn's, thyroid cancer, lung cancer, ovarian cancer; mother-breast CA - Social History Occupation: Employed Full-time Lives: With Family Alcohol Use: Occasionally Substance Use Type: None Smoking Status (MU): Former Smoker Type: Cigarettes Amount Used/How Often: 1/2 PPD Length of Time of Smoking/Using Tobacco: 1/2 PPD x 19 Years Have You Smoked in the Last Year: No When Did the Patient Quit Smoking/Using Tobacco: 2003 Household Exposure Type: Cigarettes - Immunization History Most Recent Influenza Vaccination: Not the 2015/2016 Season Vaccination Up to Date: No Review of Systems All Other Systems Reviewed And Are Negative: Yes Constitutional: Positive: Fatigue. Negative: Fever Skin: Positive: Negative Eyes: Positive: Negative ENT: Positive: Ear Ache, Sinus Congestion. Negative: Sore Throat Respiratory: Positive: Negative Cardiovascular: Positive: Negative Gastrointestinal: Positive: Diarrhea, Nausea Genitourinary: Positive: Negative, Other - past hysterectomy, ovaries spared. Motor: Positive: Negative Neurovascular: Positive: Negative Musculoskeletal: Positive: Negative Neurological/Mental Status: Positive: Headache Psychological: Positive: Negative Is Patient Immunocompromised?: No Physical Exam Triage Information Reviewed: Yes Appearance: Ill-Appearing - looks fatigued Vital Signs: Initial Vital Signs Temp 98.5 F 05/25/19 07:40 Pulse 90 05/25/19 07:40 Resp 16 05/25/19 07:40 BP 126/79 05/25/19 07:40 Pulse Ox 100 05/25/19 07:40 Eye Exam: Other - KERI, normal eom, fundi normal. No photophobia. Eyes: Positive: Conjunctiva Clear ENT: Positive: Pharynx normal, Other - ear tube embedded in left ear canal Neck: Positive: Supple, Nontender, No Lymphadenopathy Respiratory: Positive: Lungs clear, Normal breath sounds, No respiratory distress Cardiovascular: Positive: RRR, No Murmur Abdomen Description: Positive: No Organomegaly, Soft, Other: - tenderness in the RLQ without guarding, rebound or peritoneal signs. Can jump and down without increasing pain.. Negative: Distended, Guarding Bowel Sounds: Positive: Present Musculoskeletal Exam: Normal Neurological Exam: Normal Psychological Exam: Normal Skin Exam: Normal Re-Evaluation - Re-Evaluation First Eval Re-Evaluation Time: 09:05 Change: Improved Comment: Improved headache, persistent RLQ discomfort. Re-examined, and she continues to have no guarding or rebound. Will re-hydrate at home, and if pain continues after several hours, she will proceed to the emergency room. Course/Dx - Course Course Of Treatment: Discussed RLQ pain which she was not aware of until examined today. No peritoneal signs, and she declined direct ER transfer. zofran and toradol given Improved and will try oral rehydration at home. - Differential Dx - Multi-Symptom Differential Diagnoses: Other - gastroenteritis, migraine headache, dehydration. - Diagnoses Provider Diagnosis: Gastroenteritis, Dehydration Discharge ED - Sign-Out/Discharge Documenting (check all that apply): Patient Departure All imaging exams completed and their final reports reviewed: No Studies - Discharge Plan Condition: Stable Disposition: HOME Patient Education Materials: Gastroenteritis (ED), Dehydration (ED), Nutrition Tips for Relief of Diarrhea (ED) Forms: *Work Release Referrals: Jennifer Noble PA [Primary Care Provider] - Additional Instructions: As discussed, you likely have a viral illness and are a bit dehydrated. You have received ondansetron as an antinauseant and ketorolac for pain control. Rest at home, and begin fluid rehydration with soup broth, clear fluids or oral rehydration solution (can purchase in pharmacy). If your belly pain persists for more than 5 to 6 hours, or worsens, or you develop a fever, please proceed to the emergency room for further evaluation and imaging studies. - Billing Disposition and Condition Condition: STABLE Disposition: Home
[2019-05-25] MEDS ORDERED: Ondansetron ODT TAB* 4 MG PO ONE (08:22)
[2019-05-25] MEDS ORDERED: Ketorolac *IM* INJ* 60 MG/2 ML VIAL IM ONE (08:22)
== END 2019-05-25 09:21 | disposition home or self-care (01) ==
LOC: UCCORT 07:32
DX: K52.9 Noninfective gastroenteritis and colitis, unspecified (principal); E86.0 Dehydration; F41.9 Anxiety disorder, unspecified; K21.9 Gastro-esophageal reflux disease without esophagitis; E03.9 Hypothyroidism, unspecified; G89.29 Other chronic pain; M54.9 Dorsalgia, unspecified; Z88.2 Allergy status to sulfonamides; Z91.018 Allergy to other foods; Z79.890 Hormone replacement therapy; Z79.899 Other long term (current) drug therapy; Z87.891 Personal history of nicotine dependence; Z90.710 Acquired absence of both cervix and uterus
CPT/HCPCS: 96372; 99212; A9270-GY; G0463; J1885